=== PATIENT | male | born 1945 | race Caucasian/White ===

== ENCOUNTER → 2016-10-05 | Outpatient (CLI) | payer MEDICARE ==
[2016-10-05 14:48] LABS: MEAN CORPUSCULAR HEMOGLOBIN 31.4 pg (27.0-33.0); MEAN CORPUSCULAR HGB CONC 34.2 g/dl (32.0-36.5); MEAN CORPUSCULAR VOLUME 91.7 fl (80.0-96.0); RED CELL DISTRIBUTION WIDTH 12.8 % (11.5-14.5)
[2016-10-05 15:05] LABS: ALBUMIN 4.6 GM/DL (3.2-5.2); ALBUMIN/GLOBULIN RATIO 1.7 (1.00-1.93); BILIRUBIN,TOTAL 0.3 MG/DL (0.2-1.0); CALCIUM LEVEL 9.5 MG/DL (8.8-10.2); CREATININE FOR GFR 1.55 MG/DL (0.70-1.30); GLOMERULAR FILTRATION RATE 47.2 (>42); POTASSIUM SERUM 4.3 MEQ/L (3.5-5.1); TOTAL PROTEIN 7.3 GM/DL (6.4-8.2)
== END ==
LOC: M LAB 13:58
PROVIDERS: ATTEND Nurse Practitioner Family
DX: I10 Essential (primary) hypertension (principal); Z79.899 Other long term (current) drug therapy

== ENCOUNTER → 2016-12-08 | Outpatient (CLI) | payer MEDICARE ==
[2016-12-08 10:26] LABS: MEAN CORPUSCULAR HEMOGLOBIN 31.9 pg (27.0-33.0); MEAN CORPUSCULAR HGB CONC 34.9 g/dl (32.0-36.5); MEAN CORPUSCULAR VOLUME 91.5 fl (80.0-96.0); RED CELL DISTRIBUTION WIDTH 12.6 % (11.5-14.5); WHITE BLOOD COUNT 4.6 K/mm3 (4.0-10.0)
[2016-12-08 10:55] LABS: CALCIUM LEVEL 9.1 MG/DL (8.8-10.2); CREATININE FOR GFR 1.38 MG/DL (0.70-1.30); GLOMERULAR FILTRATION RATE 53.9 (>42); POTASSIUM SERUM 4.9 MEQ/L (3.5-5.1)
[2016-12-08 10:56] LABS: BILIRUBIN,TOTAL 0.5 MG/DL (0.2-1.0)
[2016-12-08 16:51] LABS: ALBUMIN 4.2 GM/DL (3.2-5.2); ALBUMIN/GLOBULIN RATIO 1.2 (1.00-1.93); TOTAL PROTEIN 7.7 GM/DL (6.4-8.2)
== END ==
LOC: M LAB 09:43
PROVIDERS: ATTEND Nurse Practitioner Family
DX: Z12.5 Encounter for screening for malignant neoplasm of prostate (principal); E78.00 Pure hypercholesterolemia, unspecified; R73.9 Hyperglycemia, unspecified

== ENCOUNTER → 2017-08-04 | Outpatient (CLI) | payer MEDICARE ==
[2017-08-04 11:26] LABS: BASO % 0.6 % (0.0-1.0); EOS # 0.1 10^3/uL (0.0-0.50); EOS % 1.9 % (0.0-3.0); HEMOGLOBIN 11.5 g/dl (14.0-18.0); IMMATURE GRANULOCYTE % 0.4 % (0-0); LYMPH # 1.2 10^3/uL (1.5-4.5); LYMPH % 23.2 % (24.0-44.0); MEAN CORPUSCULAR HGB CONC 33.8 g/dl (32.0-36.5); MEAN CORPUSCULAR VOLUME 91.6 fl (80.0-96.0); MONO # 0.5 10^3/uL (0.0-0.8); MONO % 10.2 % (0.0-5.0); NEUTROPHILS # 3.3 10^3/uL (1.8-7.7); NEUTROPHILS % 63.7 % (36.0-66.0); PLATELET COUNT, AUTOMATED 155 10^3/uL (150-450); RED BLOOD COUNT 3.71 10^6/uL (4.30-6.10); WHITE BLOOD COUNT 5.2 10^3/uL (4.0-10.0)
[2017-08-04 11:43] LABS: ESTIMATED AVERAGE GLUCOSE 140 MG/DL (60-110); HEMOGLOBIN A1c 6.5 %
[2017-08-04 11:47] LABS: ALBUMIN 3.9 GM/DL (3.2-5.2); ALBUMIN/GLOBULIN RATIO 1.18 (1.00-1.93); ALKALINE PHOSPHATASE 53 U/L (45-117); ALT/SGPT 42 U/L (12-78); ANION GAP 8 MEQ/L (8-16); AST/SGOT 34 U/L (7-37); BILIRUBIN,TOTAL 0.3 MG/DL (0.2-1.0); BLOOD UREA NITROGEN 18 MG/DL (7-18); CALCIUM LEVEL 8.8 MG/DL (8.8-10.2); CARBON DIOXIDE LEVEL 26 MEQ/L (21-32); CHLORIDE LEVEL 109 MEQ/L (98-107); CHOLESTEROL LEVEL 194 MG/DL (<200); CHOLESTEROL RISK RATIO 7.461 (<5); CREATININE FOR GFR 1.31 MG/DL (0.70-1.30); GLOMERULAR FILTRATION RATE 57.3 (>42); GLUCOSE, FASTING 111 MG/DL (70-100); HDL CHOLESTEROL 26 MG/DL (>40); NON-HDL-C 168 MG/DL; POTASSIUM SERUM 4.3 MEQ/L (3.5-5.1); PSA SCREENING 0.31 NG/ML (< 4.0); SODIUM LEVEL 143 MEQ/L (136-145); TOTAL PROTEIN 7.2 GM/DL (6.4-8.2); TRIGLYCERIDES LEVEL 415 MG/DL (<150)
[2017-08-04 12:32] LABS: TOTAL 25(OH) VITAMIN D 22.2 NG/ML (30.0-100.0)
== END ==
LOC: M LAB 10:22
DX: I10 Essential (primary) hypertension (principal); F41.9 Anxiety disorder, unspecified; H81.09 Meniere's disease, unspecified ear; E11.65 Type 2 diabetes mellitus with hyperglycemia; E78.00 Pure hypercholesterolemia, unspecified; E78.1 Pure hyperglyceridemia; N42.9 Disorder of prostate, unspecified; E55.9 Vitamin D deficiency, unspecified
CPT/HCPCS: 84443

== ENCOUNTER → 2017-09-25 | Outpatient (CLI) | payer MEDICARE ==
[~2017-09-25] MED LIST: GASTROGRAFIN SOLUTION 30ML (Q9963) As Ordered; ISOVUE-370 76% 100ML VIAL (Q9967) As Ordered
== END ==
LOC: M RAD 15:42
DX: K40.90 Unilateral inguinal hernia, without obstruction or gangrene, not specified as recurrent (principal); K57.90 Diverticulosis of intestine, part unspecified, without perforation or abscess without bleeding; N42.0 Calculus of prostate; R10.9 Unspecified abdominal pain
CPT/HCPCS: Q9963

== ENCOUNTER → 2017-11-07 | Outpatient (CLI) | payer MEDICARE ==
[2017-11-07 08:58] LABS: BASO % 0.4 % (0.0-1.0); EOS # 0.1 10^3/uL (0.0-0.50); EOS % 1.7 % (0.0-3.0); HEMATOCRIT 36.6 % (42.0-52.0); HEMOGLOBIN 12.3 g/dl (13.5-17.5); IMMATURE GRANULOCYTE % 0.2 % (0-3.0); LYMPH # 1.4 10^3/uL (1.5-4.5); LYMPH % 29.4 % (24.0-44.0); MEAN CORPUSCULAR HEMOGLOBIN 30.5 pg (27.0-33.0); MEAN CORPUSCULAR HGB CONC 33.6 g/dl (32.0-36.5); MEAN CORPUSCULAR VOLUME 90.8 fl (80.0-96.0); MONO # 0.5 10^3/uL (0.0-0.8); MONO % 11.4 % (0.0-5.0); NEUTROPHILS # 2.7 10^3/uL (1.8-7.7); NEUTROPHILS % 56.9 % (36.0-66.0); PLATELET COUNT, AUTOMATED 178 10^3/uL (150-450); RED BLOOD COUNT 4.03 10^6/uL (4.30-6.10); RED CELL DISTRIBUTION WIDTH 12.6 % (11.5-14.5); WHITE BLOOD COUNT 4.7 10^3/uL (4.0-10.0)
[2017-11-07 09:29] LABS: ALBUMIN 4.3 GM/DL (3.2-5.2); ALBUMIN/GLOBULIN RATIO 1.23 (1.00-1.93); ALKALINE PHOSPHATASE 43 U/L (45-117); ALT/SGPT 31 U/L (12-78); ANION GAP 6 MEQ/L (8-16); AST/SGOT 31 U/L (7-37); BILIRUBIN,TOTAL 0.4 MG/DL (0.2-1.0); BLOOD UREA NITROGEN 32 MG/DL (7-18); CARBON DIOXIDE LEVEL 25 MEQ/L (21-32); CHLORIDE LEVEL 110 MEQ/L (98-107); CHOLESTEROL LEVEL 206 MG/DL (<200); CHOLESTEROL RISK RATIO 6.645 (<5); CREATININE FOR GFR 1.65 MG/DL (0.70-1.30); FREE T4 1.02 NG/DL (0.76-1.46); GLOMERULAR FILTRATION RATE 43.8 (>42); GLUCOSE, FASTING 103 MG/DL (70-100); HDL CHOLESTEROL 31 MG/DL (>40); LDL CHOLESTEROL 138.4 MG/DL (<100); NON-HDL-C 175 MG/DL; POTASSIUM SERUM 4.5 MEQ/L (3.5-5.1); SODIUM LEVEL 141 MEQ/L (136-145); TOTAL PROTEIN 7.8 GM/DL (6.4-8.2); TRIGLYCERIDES LEVEL 183 MG/DL (<150)
[2017-11-07 09:30] LABS: TOTAL 25(OH) VITAMIN D 27.2 NG/ML (30.0-100.0)
[2017-11-07 11:00] LABS: ESTIMATED AVERAGE GLUCOSE 131 MG/DL (60-110); HEMOGLOBIN A1c 6.2 %
== END ==
LOC: M LAB 08:34
DX: E78.1 Pure hyperglyceridemia (principal); E78.00 Pure hypercholesterolemia, unspecified; E11.65 Type 2 diabetes mellitus with hyperglycemia; Z79.899 Other long term (current) drug therapy
CPT/HCPCS: 84443

== ENCOUNTER → 2018-05-14 | Outpatient (CLI) | payer MEDICARE ==
[2018-05-14 13:39] LABS: BASO % 0.5 % (0.0-1.0); EOS # 0.1 10^3/uL (0.0-0.50); EOS % 1.4 % (0.0-3.0); HEMATOCRIT 34.3 % (42.0-52.0); HEMOGLOBIN 11.8 g/dl (13.5-17.5); IMMATURE GRANULOCYTE % 0.7 % (0-3.0); LYMPH # 1.2 10^3/uL (1.5-4.5); LYMPH % 21.2 % (24.0-44.0); MEAN CORPUSCULAR HEMOGLOBIN 30.7 pg (27.0-33.0); MEAN CORPUSCULAR HGB CONC 34.4 g/dl (32.0-36.5); MEAN CORPUSCULAR VOLUME 89.3 fl (80.0-96.0); MONO # 0.5 10^3/uL (0.0-0.8); MONO % 8.4 % (0.0-5.0); NEUTROPHILS % 67.8 % (36.0-66.0); PLATELET COUNT, AUTOMATED 149 10^3/uL (150-450); RED BLOOD COUNT 3.84 10^6/uL (4.30-6.10); WHITE BLOOD COUNT 5.8 10^3/uL (4.0-10.0)
[2018-05-14 14:13] LABS: ALBUMIN 3.9 GM/DL (3.2-5.2); ALBUMIN/GLOBULIN RATIO 1.15 (1.00-1.93); ALKALINE PHOSPHATASE 51 U/L (45-117); ALT/SGPT 31 U/L (12-78); ANION GAP 9 MEQ/L (8-16); AST/SGOT 31 U/L (7-37); BILIRUBIN,TOTAL 0.4 MG/DL (0.2-1.0); BLOOD UREA NITROGEN 24 MG/DL (7-18); CALCIUM LEVEL 8.8 MG/DL (8.8-10.2); CARBON DIOXIDE LEVEL 22 MEQ/L (21-32); CHLORIDE LEVEL 110 MEQ/L (98-107); CHOLESTEROL LEVEL 216 MG/DL (<200); CREATININE FOR GFR 1.34 MG/DL (0.70-1.30); FREE T4 0.97 NG/DL (0.76-1.46); GLOMERULAR FILTRATION RATE 55.6 (>42); GLUCOSE, FASTING 98 MG/DL (70-100); HDL CHOLESTEROL 27 MG/DL (>40); LDL CHOLESTEROL 123 MG/DL (<100); NON-HDL-C 189 MG/DL; POTASSIUM SERUM 4.5 MEQ/L (3.5-5.1); SODIUM LEVEL 141 MEQ/L (136-145); TOTAL PROTEIN 7.3 GM/DL (6.4-8.2); TRIGLYCERIDES LEVEL 328 MG/DL (<150)
[2018-05-14 14:23] LABS: TOTAL 25(OH) VITAMIN D 39.3 NG/ML (30.0-100.0)
[2018-05-14 15:03] LABS: ESTIMATED AVERAGE GLUCOSE 128 MG/DL (60-110); HEMOGLOBIN A1c 6.1 %
== END ==
LOC: M LAB 12:48
DX: I10 Essential (primary) hypertension (principal); Z79.899 Other long term (current) drug therapy
CPT/HCPCS: 84443

== ENCOUNTER → 2018-07-12 | Outpatient (CLI) | payer MEDICARE ==
[2018-07-12 14:10] LABS: BASO % 0.6 % (0.0-1.0); EOS # 0.2 10^3/uL (0.0-0.50); EOS % 2.9 % (0.0-3.0); HEMATOCRIT 35.9 % (42.0-52.0); HEMOGLOBIN 12.3 g/dl (13.5-17.5); LYMPH # 1.3 10^3/uL (1.5-4.5); LYMPH % 24.2 % (24.0-44.0); MEAN CORPUSCULAR HEMOGLOBIN 30.4 pg (27.0-33.0); MEAN CORPUSCULAR HGB CONC 34.3 g/dl (32.0-36.5); MEAN CORPUSCULAR VOLUME 88.9 fl (80.0-96.0); MONO # 0.6 10^3/uL (0.0-0.8); MONO % 10.9 % (0.0-5.0); NEUTROPHILS # 3.2 10^3/uL (1.8-7.7); PLATELET COUNT, AUTOMATED 181 10^3/uL (150-450); RED BLOOD COUNT 4.04 10^6/uL (4.30-6.10); WHITE BLOOD COUNT 5.2 10^3/uL (4.0-10.0)
[2018-07-12 14:31] LABS: HEMOGLOBIN A1c 6.1 %
[2018-07-12 14:41] LABS: ALBUMIN 4.2 GM/DL (3.2-5.2); BILIRUBIN,TOTAL 0.3 MG/DL (0.2-1.0); CALCIUM LEVEL 9.6 MG/DL (8.8-10.2); CHOLESTEROL RISK RATIO 6.666 (<5); CREATININE FOR GFR 1.44 MG/DL (0.70-1.30); FREE T4 1.14 NG/DL (0.76-1.46); GLOMERULAR FILTRATION RATE 51.2 (>42); POTASSIUM SERUM 4.9 MEQ/L (3.5-5.1); THYROID STIMULATING HORMONE 3.35 uIU/ML (0.358-3.740); TOTAL PROTEIN 7.6 GM/DL (6.4-8.2)
== END ==
LOC: M LAB 13:08
PROVIDERS: ATTEND Physician Assistant Medical
DX: I10 Essential (primary) hypertension (principal); E78.2 Mixed hyperlipidemia; E03.9 Hypothyroidism, unspecified; E11.9 Type 2 diabetes mellitus without complications

== ENCOUNTER 2018-12-15 19:09 | Inpatient (IN) | payer OTHER, MEDICARE ==
[~2018-12-15] VITALS: Ht 167.6 cm; Wt 76.2 kg
[2018-12-15] MEDS ORDERED: METF500T4 PO (19:14)
[2018-12-15] MEDS ORDERED: TIZA4TAB4 PO (19:14)
[2018-12-15] MEDS ORDERED: ATEN100T PO (19:14)
[2018-12-15] MEDS ORDERED: LISI10TA4 PO (19:14)
[2018-12-15] MEDS ORDERED: EZET10TA21 PO (19:14)
[2018-12-15] MEDS ORDERED: LEVO88TA3 PO (19:14)
[2018-12-15] MEDS ORDERED: FENO145T13 PO (19:14)
[2018-12-15] MEDS ORDERED: TRAV04OPD OU (19:14)
[2018-12-15 20:24] LABS: BASO % 0.6 % (0.0-1.0); EOS # 0.1 10^3/uL (0.0-0.50); HEMATOCRIT 35.5 % (42.0-52.0); HEMOGLOBIN 11.8 g/dl (13.5-17.5); LYMPH # 1.5 10^3/uL (1.5-4.5); LYMPH % 28.5 % (24.0-44.0); MEAN CORPUSCULAR HGB CONC 33.2 g/dl (32.0-36.5); MEAN CORPUSCULAR VOLUME 93.2 fl (80.0-96.0); MONO # 0.6 10^3/uL (0.0-0.8); MONO % 11.1 % (0.0-5.0); NEUTROPHILS # 3.1 10^3/uL (1.8-7.7); NEUTROPHILS % 57.4 % (36.0-66.0); PLATELET COUNT, AUTOMATED 186 10^3/uL (150-450); RED BLOOD COUNT 3.81 10^6/uL (4.30-6.10); WHITE BLOOD COUNT 5.4 10^3/uL (4.0-10.0)
[2018-12-15 20:34] LABS: INR 1.01; PARTIAL THROMBOPLASTIN TIME 27.9 SECONDS (25.4-37.6); PROTHROMBIN TIME 13.4 SECONDS (12.1-14.4)
[2018-12-15 20:50] LABS: ALT/SGPT 46 U/L (12-78); BILIRUBIN,DIRECT < 0.1 MG/DL (0.0-0.2); BILIRUBIN,TOTAL 0.3 MG/DL (0.2-1.0); BLOOD UREA NITROGEN 32 MG/DL (7-18); CALCIUM LEVEL 9.6 MG/DL (8.8-10.2); CARBON DIOXIDE LEVEL 24 MEQ/L (21-32); CHLORIDE LEVEL 110 MEQ/L (98-107); GLOMERULAR FILTRATION RATE 42.2 (>42); GLUCOSE, FASTING 117 MG/DL (70-100); POTASSIUM SERUM 5.1 MEQ/L (3.5-5.1); SODIUM LEVEL 141 MEQ/L (136-145); TOTAL PROTEIN 7.8 GM/DL (6.4-8.2)
[2018-12-15] MEDS ORDERED: LISINOPRIL 10 MG TAB PO SCH (21:00)
[2018-12-15] MEDS ORDERED: NS 1,000 ML IV SCH (21:01)
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
[2018-12-15] MEDS ORDERED: ACETAMINOPHEN TAB 650MG DOSE (2X325MG) PO ONE (23:15)
[2018-12-16] MEDS: NS 1,000 ML IV SCH ×2 (00:38→06:52)
[2018-12-16] MEDS: tiZANidine 4 MG TAB PO SCH ×2 (00:38→22:14)
[2018-12-16 01:38] VITALS: BP 140/80
[2018-12-16] MEDS: ATENOLOL 50 MG TAB PO SCH ×2 (01:41→22:16)
[2018-12-16] MEDS: LEVOTHYROXINE 88MCG TABLET (0.088 MG) PO SCH ×2 (01:42→22:14)
[2018-12-16] MEDS: FENOFIBRATE 145 MG TAB (TRICOR) PO SCH ×2 (01:42→22:14)
[2018-12-16] MEDS: ACETAMINOPHEN TAB 650MG DOSE (2X325MG) PO PRN (04:30)
[2018-12-16] MEDS: oxyCODONE 5MG TAB PO PRN ×2 (05:57→13:02)
[2018-12-16 07:34] LABS: HEMATOCRIT 33.7 % (42.0-52.0); HEMOGLOBIN 11.4 g/dl (13.5-17.5); MEAN CORPUSCULAR HEMOGLOBIN 31.8 pg (27.0-33.0); MEAN CORPUSCULAR HGB CONC 33.8 g/dl (32.0-36.5); MEAN CORPUSCULAR VOLUME 93.9 fl (80.0-96.0); PLATELET COUNT, AUTOMATED 180 10^3/uL (150-450); RED BLOOD COUNT 3.59 10^6/uL (4.30-6.10); WHITE BLOOD COUNT 5.3 10^3/uL (4.0-10.0)
[2018-12-16 07:58] LABS: CALCIUM LEVEL 8.8 MG/DL (8.8-10.2); CREATININE FOR GFR 1.46 MG/DL (0.70-1.30); GLOMERULAR FILTRATION RATE 50.2 (>42); POTASSIUM SERUM 4.7 MEQ/L (3.5-5.1)
[2018-12-16 08:00] VITALS: BP 157/82
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
[2018-12-16] MEDS ORDERED: SLF 3 ML SYR IV PRN (10:30)
[2018-12-16] MEDS ORDERED: METHOCARBAMOL 500 MG TAB PO SCH (11:00)
[2018-12-16] MEDS ORDERED: PROHANCE 279.3MG/ML 15ML VIAL (A9576) As Ordered ONE (12:33)
[2018-12-16] MEDS: LIDOCAINE 5% (LIDODERM) PATCH TD SCH (13:01)
[2018-12-16] MEDS: SLF 3 ML SYR IV SCH (13:50)
--- NOTE | 2018-12-16 14:01 | REP ---
RIGHT SHOULDER, THREE VIEWS: Three views of the right shoulder are performed. There is no acute fracture or dislocation. There is mild narrowing and spurring at the acromioclavicular joint. There is also mild narrowing and spurring at the glenohumeral joint. Two surgical anchors are seen in the humeral head. IMPRESSION: Degenerative changes. No acute fracture or dislocation. Electronically Signed by Emerson Schilling MD 12/16/2018 04:38 P
[2018-12-16 14:35] VITALS: BP 165/90
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
[2018-12-16] MEDS: METHOCARBAMOL 500 MG TAB PO SCH (17:04)
[2018-12-16 22:00] VITALS: BP 143/78
[2018-12-16] MEDS: LATANOPROST 0.005% OPHTH SOLN 2.5 ML OU SCH ×2 (22:13→22:17)
[2018-12-17] MEDS: **NOTE PATIENT COMMENT** MISC XX SCH ×2 (02:23→20:44)
[2018-12-17] MEDS: SLF 3 ML SYR IV SCH ×4 (02:24→22:03)
[2018-12-17 06:00] VITALS: BP 133/78
[2018-12-17 06:04] LABS: HEMATOCRIT 37.8 % (42.0-52.0); HEMOGLOBIN 12.7 g/dl (13.5-17.5); MEAN CORPUSCULAR HEMOGLOBIN 31.3 pg (27.0-33.0); MEAN CORPUSCULAR HGB CONC 33.6 g/dl (32.0-36.5); MEAN CORPUSCULAR VOLUME 93.1 fl (80.0-96.0); PLATELET COUNT, AUTOMATED 193 10^3/uL (150-450); RED BLOOD COUNT 4.06 10^6/uL (4.30-6.10); WHITE BLOOD COUNT 6.1 10^3/uL (4.0-10.0)
[2018-12-17 06:21] LABS: HEMOGLOBIN A1c 6.1 %
[2018-12-17 06:28] LABS: CREATININE FOR GFR 1.52 MG/DL (0.70-1.30); POTASSIUM SERUM 4.2 MEQ/L (3.5-5.1)
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
[2018-12-17] MEDS: LIDOCAINE 5% (LIDODERM) PATCH TD SCH (08:07)
[2018-12-17] MEDS: METHOCARBAMOL 500 MG TAB PO SCH ×3 (08:07→17:40)
[2018-12-17] MEDS: ENOXAPARIN 40 MG/0.4 ML SYRINGE (J1650) SC SCH (08:07)
[2018-12-17] MEDS: oxyCODONE 5MG TAB PO PRN ×2 (10:19→20:41)
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
[2018-12-17 14:00] VITALS: BP 154/93
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
--- NOTE | 2018-12-17 17:19 | REP ---
Cervical spine eight views: Comparison is the CT study dated 12/15/2018. Vertebral body heights and alignment are normal C1-C6. See 71 are obscured by the shoulders. There are large anterior bridging osteophytes at C for five and C5-6. There is degenerative disc disease at every cervical level, most advanced at C 05/06 and 06/07. There is facet osteoarthritis. The prevertebral soft tissues are unremarkable. The odontoid view is unremarkable. The foramen are obscured. If there are clinical findings suggestive of a nerve root compression. Consider follow-up MRI. Impression: The degenerative disc disease, facet osteoarthritis and vertebral body osteophyte formation as described. Electronically Signed by Emerson Delgado MD 12/17/2018 05:11 P
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
[2018-12-17] MEDS: FENOFIBRATE 145 MG TAB (TRICOR) PO SCH (20:41)
[2018-12-17] MEDS: LEVOTHYROXINE 88MCG TABLET (0.088 MG) PO SCH (20:41)
[2018-12-17] MEDS: ATENOLOL 50 MG TAB PO SCH (20:42)
[2018-12-17] MEDS: tiZANidine 4 MG TAB PO SCH (20:42)
[2018-12-17] MEDS: LATANOPROST 0.005% OPHTH SOLN 2.5 ML OU SCH (20:42)
[2018-12-17 22:00] VITALS: BP 140/86
[2018-12-18 06:00] VITALS: BP 129/76
[2018-12-18 06:16] LABS: HEMATOCRIT 37.1 % (42.0-52.0); HEMOGLOBIN 12.7 g/dl (13.5-17.5); MEAN CORPUSCULAR HEMOGLOBIN 30.9 pg (27.0-33.0); MEAN CORPUSCULAR HGB CONC 34.2 g/dl (32.0-36.5); MEAN CORPUSCULAR VOLUME 90.3 fl (80.0-96.0); PLATELET COUNT, AUTOMATED 231 10^3/uL (150-450); RED BLOOD COUNT 4.11 10^6/uL (4.30-6.10); WHITE BLOOD COUNT 7.2 10^3/uL (4.0-10.0)
[2018-12-18] MEDS: SLF 3 ML SYR IV SCH ×3 (06:21→20:27)
[2018-12-18] MEDS: oxyCODONE 5MG TAB PO PRN ×2 (06:28→13:07)
[2018-12-18 06:36] LABS: CALCIUM LEVEL 9.2 MG/DL (8.8-10.2); CREATININE FOR GFR 1.95 MG/DL (0.70-1.30); POTASSIUM SERUM 4.4 MEQ/L (3.5-5.1)
[2018-12-18] MEDS: METHOCARBAMOL 500 MG TAB PO SCH ×2 (08:35→13:06)
[2018-12-18] MEDS: ENOXAPARIN 40 MG/0.4 ML SYRINGE (J1650) SC SCH (08:36)
[2018-12-18] MEDS: LIDOCAINE 5% (LIDODERM) PATCH TD SCH (08:36)
[2018-12-18 14:00] VITALS: BP 134/80
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
[2018-12-18] MEDS: GABAPENTIN 100 MG CAP PO SCH ×2 (16:31→20:26)
[2018-12-18 17:54] VITALS: BP 190/96
[2018-12-18] MEDS ORDERED: NS 1,000 ML IV SCH (18:00)
[2018-12-18 18:05] VITALS: BP 178/95
[2018-12-18 18:43] VITALS: BP_SYST 152; BP_SYST 162; BP_SYST 169; BP_DIAS 106; BP_DIAS 87; BP_DIAS 89
[2018-12-18 19:02] LABS: BLOOD UREA NITROGEN 41 MG/DL (7-18); CALCIUM LEVEL 9.2 MG/DL (8.8-10.2); CARBON DIOXIDE LEVEL 22 MEQ/L (21-32); CHLORIDE LEVEL 108 MEQ/L (98-107); CREATININE FOR GFR 1.97 MG/DL (0.70-1.30); GLOMERULAR FILTRATION RATE 35.6 (>42); GLUCOSE, FASTING 131 MG/DL (70-100); POTASSIUM SERUM 4.2 MEQ/L (3.5-5.1); SODIUM LEVEL 138 MEQ/L (136-145); TROPONIN I < 0.02 NG/ML (< 0.10)
[2018-12-18] MEDS: LEVOTHYROXINE 88MCG TABLET (0.088 MG) PO SCH (20:26)
[2018-12-18] MEDS: ATENOLOL 50 MG TAB PO SCH (20:26)
[2018-12-18] MEDS: LATANOPROST 0.005% OPHTH SOLN 2.5 ML OU SCH (20:26)
[2018-12-18] MEDS: FENOFIBRATE 145 MG TAB (TRICOR) PO SCH (20:26)
[2018-12-18] MEDS: tiZANidine 4 MG TAB PO SCH (20:26)
[2018-12-18] MEDS: **NOTE PATIENT COMMENT** MISC XX SCH (20:28)
[2018-12-18 22:00] VITALS: BP 148/81
[2018-12-19] MEDS: oxyCODONE 5MG TAB PO PRN ×4 (01:28→23:54)
[2018-12-19] MEDS: SLF 3 ML SYR IV SCH ×3 (06:04→20:36)
[2018-12-19 06:05] LABS: HEMATOCRIT 37.4 % (42.0-52.0); HEMOGLOBIN 12.4 g/dl (13.5-17.5); MEAN CORPUSCULAR HEMOGLOBIN 31.1 pg (27.0-33.0); MEAN CORPUSCULAR HGB CONC 33.2 g/dl (32.0-36.5); MEAN CORPUSCULAR VOLUME 93.7 fl (80.0-96.0); PLATELET COUNT, AUTOMATED 235 10^3/uL (150-450); RED BLOOD COUNT 3.99 10^6/uL (4.30-6.10); WHITE BLOOD COUNT 9.5 10^3/uL (4.0-10.0)
[2018-12-19 06:34] LABS: CALCIUM LEVEL 8.7 MG/DL (8.8-10.2); CREATININE FOR GFR 1.81 MG/DL (0.70-1.30); GLOMERULAR FILTRATION RATE 39.2 (>42); POTASSIUM SERUM 4.4 MEQ/L (3.5-5.1)
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
[2018-12-19] MEDS: GABAPENTIN 100 MG CAP PO SCH ×3 (08:16→20:35)
[2018-12-19] MEDS: LIDOCAINE 5% (LIDODERM) PATCH TD SCH (08:19)
[2018-12-19] MEDS: ENOXAPARIN 40 MG/0.4 ML SYRINGE (J1650) SC SCH (10:05)
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
--- NOTE | 2018-12-19 11:57 | REP ---
CT BRAIN WITHOUT CONTRAST: HISTORY: Syncope. COMPARISON STUDY: December [address] FINDINGS: Preliminary digital drafter seismograph radiograph is unremarkable. Bony calvarium appears intact. There is vascular calcification in the distal carotid arteries bilaterally. The visualized paranasal sinuses are clear. No intraorbital abnormality is seen. On soft tissue window settings, there is mild diffuse cerebral atrophy. Schilling-white differentiation pattern is normal above below the tentorium. There is no evidence of intracranial hemorrhage or infarction. No extra-axial fluid collection, mass, or midline shift is seen. IMPRESSION: Mild diffuse atrophy and vascular calcification again noted. No acute intracranial abnormality. Electronically Signed by Saul Liu MD 12/19/2018 02:31 P
[2018-12-19 14:00] VITALS: BP 185/81
[2018-12-19 15:07] VITALS: BP 140/70
[2018-12-19] MEDS: LEVOTHYROXINE 88MCG TABLET (0.088 MG) PO SCH (20:34)
[2018-12-19] MEDS: FENOFIBRATE 145 MG TAB (TRICOR) PO SCH (20:35)
[2018-12-19] MEDS: tiZANidine 4 MG TAB PO SCH (20:35)
[2018-12-19] MEDS: LATANOPROST 0.005% OPHTH SOLN 2.5 ML OU SCH (20:36)
[2018-12-19] MEDS: ATENOLOL 50 MG TAB PO SCH (20:36)
[2018-12-19] MEDS: **NOTE PATIENT COMMENT** MISC XX SCH (20:37)
[2018-12-19 22:00] VITALS: BP 153/84
[2018-12-20] MEDS: SLF 3 ML SYR IV SCH (05:53)
[2018-12-20] MEDS: oxyCODONE 5MG TAB PO PRN ×2 (05:54→14:34)
[2018-12-20 06:00] VITALS: BP 154/92
[2018-12-20 06:38] LABS: HEMATOCRIT 37.4 % (42.0-52.0); HEMOGLOBIN 12.6 g/dl (13.5-17.5); MEAN CORPUSCULAR HEMOGLOBIN 30.5 pg (27.0-33.0); MEAN CORPUSCULAR HGB CONC 33.7 g/dl (32.0-36.5); MEAN CORPUSCULAR VOLUME 90.6 fl (80.0-96.0); PLATELET COUNT, AUTOMATED 240 10^3/uL (150-450); RED BLOOD COUNT 4.13 10^6/uL (4.30-6.10); WHITE BLOOD COUNT 8.7 10^3/uL (4.0-10.0)
[2018-12-20 07:01] LABS: CALCIUM LEVEL 8.6 MG/DL (8.8-10.2); CREATININE FOR GFR 1.69 MG/DL (0.70-1.30); GLOMERULAR FILTRATION RATE 42.4 (>42); POTASSIUM SERUM 4.1 MEQ/L (3.5-5.1)
[2018-12-20] MEDS: GABAPENTIN 100 MG CAP PO SCH ×3 (09:19→20:23)
[2018-12-20] MEDS: LIDOCAINE 5% (LIDODERM) PATCH TD SCH (09:19)
[2018-12-20] MEDS: ENOXAPARIN 40 MG/0.4 ML SYRINGE (J1650) SC SCH (09:20)
[2018-12-20 14:00] VITALS: BP 150/58
[2018-12-20] MEDS: METHOCARBAMOL 500 MG TAB PO PRN (14:33)
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
[2018-12-20] MEDS: LEVOTHYROXINE 88MCG TABLET (0.088 MG) PO SCH (20:23)
[2018-12-20] MEDS: tiZANidine 4 MG TAB PO SCH (20:23)
[2018-12-20] MEDS: FENOFIBRATE 145 MG TAB (TRICOR) PO SCH (20:23)
[2018-12-20] MEDS: LATANOPROST 0.005% OPHTH SOLN 2.5 ML OU SCH (20:24)
[2018-12-20] MEDS: **NOTE PATIENT COMMENT** MISC XX SCH (20:24)
[2018-12-20] MEDS: ATENOLOL 50 MG TAB PO SCH (20:26)
[2018-12-20 22:00] VITALS: BP 142/72
[2018-12-21] VITALS (18 sets, daily range): BP systolic 143–172; BP diastolic 65–99; O2SAT 93–98
--- NOTE | 2018-12-21 02:03 | IPNPDOC ---
Text Note Date of Service The patient was seen on 12/21/18. NOTE Rapid Assessment Note Patient had a RAT called at about 1 am. Patient was found down on the floor half in and half out of the bathroom door lying on his left side . The Nurse's AID found him. He did not have his collar on. He was non responsive but had good pulse. RAT was called. Vitals were stable . Patient slowly became more responsive and was trying to speak initially could say 1 or 2 words only. He could not move his lower or upper extremities at all. His soft collar was immediately put back on. On my exam he was responsive with eyes open could not verbalize much but could say yes or no or to nod to leading questions On Physical exam there was asymmetric DTRs on his lower extremities. Right 3+ and left 2+, his upper extremity DTRS were decreased. Gradually over the next 30 mins he was able to move his legs more and also his upper extremities more. He was also able to speak better. He said that he was coming out of the bathroom when he felt a sudden pain at the back of his neck shooting up to his head and then "the lights went". Next thing he knows is that his is on the floor and he could not move. He complained of numbness of his right upper extremity, his sensations in the legs were OK. He also complained of double vision. I suspected acute intermittent cord compression at the cervical cord level leading to acute loss of muscle power and collapse. Could not explain the double vision or the inability to talk unless he also had brain stem issues. Stat head CT, MRI C spine, MRI brain, MRI thoracic spine. will transfer the Pateint to PCU, telemetry continuous pulse oximetry, q4 hour neuro checks. VS,Dannie, I+O VS, Dannie, I+O Laboratory Tests 12/20/18 05:36 Red Blood Count 4.13 L, Mean Corpuscular Volume 90.6, Mean Corpuscular Hemoglobin 30.5, Mean Corpuscular Hemoglobin Concent 33.7, Red Cell Distribution Width 12.7, Calcium Level 8.6 L Vital Signs Date Time Temp Pulse Resp B/P (MAP) Pulse Ox O2 Delivery O2 Flow Rate FiO2 12/20/18 22:00 96.9 69 18 142/72 (95) 98 12/15/18 21:00 Room Air I&O- Last 24 Hours up to 6 AM 12/21/18 06:00 Intake Total 1200 ml Balance 1200 ml [place] BISWAS MD Dec 21, 2018 02:03
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
[2018-12-21] MEDS: oxyCODONE 5MG TAB PO PRN ×2 (06:54→13:58)
[2018-12-21] MEDS: ENOXAPARIN 40 MG/0.4 ML SYRINGE (J1650) SC SCH (08:34)
[2018-12-21] MEDS: GABAPENTIN 100 MG CAP PO SCH ×3 (08:34→21:58)
[2018-12-21] MEDS: LIDOCAINE 5% (LIDODERM) PATCH TD SCH (08:34)
[2018-12-21] MEDS ORDERED: SLF 3 ML SYR IV PRN (15:00)
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
[2018-12-21] MEDS: **NOTE PATIENT COMMENT** MISC XX SCH (21:00)
[2018-12-21] MEDS: tiZANidine 4 MG TAB PO SCH (21:58)
[2018-12-21] MEDS: LEVOTHYROXINE 88MCG TABLET (0.088 MG) PO SCH (21:58)
[2018-12-21] MEDS: FENOFIBRATE 145 MG TAB (TRICOR) PO SCH (21:58)
[2018-12-21] MEDS: ATENOLOL 50 MG TAB PO SCH (21:58)
[2018-12-21] MEDS: LATANOPROST 0.005% OPHTH SOLN 2.5 ML OU SCH (21:59)
[2018-12-21] MEDS: SLF 3 ML SYR IV SCH (22:04)
[2018-12-22] VITALS (15 sets, daily range): BP systolic 120–160; BP diastolic 71–91; O2SAT 91–96
[2018-12-22] MEDS: oxyCODONE 5MG TAB PO PRN ×2 (05:10→11:24)
[2018-12-22] MEDS: SLF 3 ML SYR IV SCH ×3 (05:16→21:24)
[2018-12-22] MEDS: GABAPENTIN 100 MG CAP PO SCH ×3 (10:19→21:16)
[2018-12-22] MEDS: ENOXAPARIN 40 MG/0.4 ML SYRINGE (J1650) SC SCH (10:19)
[2018-12-22] MEDS: LIDOCAINE 5% (LIDODERM) PATCH TD SCH (10:19)
[2018-12-22] MEDS: METHOCARBAMOL 500 MG TAB PO PRN (11:24)
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
[2018-12-22] MEDS: **NOTE PATIENT COMMENT** MISC XX SCH (21:00)
[2018-12-22] MEDS: ACETAMINOPHEN TAB 650MG DOSE (2X325MG) PO PRN (21:16)
[2018-12-22] MEDS: LEVOTHYROXINE 88MCG TABLET (0.088 MG) PO SCH (21:17)
[2018-12-22] MEDS: tiZANidine 4 MG TAB PO SCH (21:17)
[2018-12-22] MEDS: LATANOPROST 0.005% OPHTH SOLN 2.5 ML OU SCH (21:20)
[2018-12-22] MEDS: FENOFIBRATE 145 MG TAB (TRICOR) PO SCH (21:20)
[2018-12-22] MEDS: ATENOLOL 50 MG TAB PO SCH (21:20)
[2018-12-23] VITALS: BP 133/80
[2018-12-23] MEDS: oxyCODONE 5MG TAB PO PRN ×3 (00:22→23:38)
[2018-12-23 04:00] VITALS: BP 141/78
[2018-12-23] MEDS: SLF 3 ML SYR IV SCH ×3 (06:35→22:00)
[2018-12-23 08:00] VITALS: BP 136/74
[2018-12-23] MEDS: METHOCARBAMOL 500 MG TAB PO PRN (08:43)
[2018-12-23] MEDS: ACETAMINOPHEN TAB 650MG DOSE (2X325MG) PO PRN ×2 (08:44→16:35)
[2018-12-23] MEDS: GABAPENTIN 100 MG CAP PO SCH ×3 (08:44→20:41)
[2018-12-23] MEDS: ENOXAPARIN 40 MG/0.4 ML SYRINGE (J1650) SC SCH (08:45)
[2018-12-23] MEDS: LIDOCAINE 5% (LIDODERM) PATCH TD SCH (08:45)
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
[2018-12-23] MEDS ORDERED: GABA-1171 PO (13:23)
[2018-12-23] MEDS ORDERED: OXYCO5TA PO (13:23)
[2018-12-23] MEDS ORDERED: LIDO5TD TD (13:23)
[2018-12-23 20:00] VITALS: BP 144/89
[2018-12-23] MEDS: LEVOTHYROXINE 88MCG TABLET (0.088 MG) PO SCH (20:40)
[2018-12-23] MEDS: tiZANidine 4 MG TAB PO SCH (20:40)
[2018-12-23 20:41] VITALS: BP 144/89
[2018-12-23] MEDS: ATENOLOL 50 MG TAB PO SCH (20:41)
[2018-12-23] MEDS: FENOFIBRATE 145 MG TAB (TRICOR) PO SCH (20:41)
[2018-12-23] MEDS: **NOTE PATIENT COMMENT** MISC XX SCH (21:00)
[2018-12-23] MEDS: LATANOPROST 0.005% OPHTH SOLN 2.5 ML OU SCH (21:02)
[2018-12-24] MEDS: ACETAMINOPHEN TAB 650MG DOSE (2X325MG) PO PRN (01:33)
[2018-12-24 04:00] VITALS: BP 145/78
[2018-12-24] MEDS: SLF 3 ML SYR IV SCH (05:57)
[2018-12-24 08:00] VITALS: BP 156/74
[2018-12-24] MEDS: GABAPENTIN 100 MG CAP PO SCH (09:07)
[2018-12-24] MEDS: ENOXAPARIN 40 MG/0.4 ML SYRINGE (J1650) SC SCH (09:08)
[2018-12-24] MEDS: LIDOCAINE 5% (LIDODERM) PATCH TD SCH (09:08)
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
== END 2018-12-24 11:41 | disposition home or self-care (01) | DRG 347 ==
LOC: M ED 19:09 → M ED INP 23:47 → M PCU 12-16 01:13 → M MSPAV 12-16 14:32 → OBSVTOIN 12-17 15:52 → M PCU 12-21 01:50
PROVIDERS: ADMIT Hospitalist; ATTEND Family Medicine
DX: S13.4XXA Sprain of ligaments of cervical spine, initial encounter (principal); E11.29 Type 2 diabetes mellitus with other diabetic kidney complication; E11.40 Type 2 diabetes mellitus with diabetic neuropathy, unspecified; J44.9 Chronic obstructive pulmonary disease, unspecified; M48.02 Spinal stenosis, cervical region; N18.3 Chronic kidney disease, stage 3 (moderate); I12.9 Hypertensive chronic kidney disease with stage 1 through stage 4 chronic kidney disease, or unspecified chronic kidney disease; E78.5 Hyperlipidemia, unspecified; E03.9 Hypothyroidism, unspecified; Z79.899 Other long term (current) drug therapy; R55 Syncope and collapse; V49.49XA Driver injured in collision with other motor vehicles in traffic accident, initial encounter

== ENCOUNTER → 2019-06-19 | Outpatient (CLI) | payer OTHER, MEDICARE ==
[~2019-06-19] MED LIST changes: +ATEN100T PO; +EZET10TA21 PO; +FENO145T13 PO; +GABA-1171 PO; -GASTROGRAFIN SOLUTION 30ML (Q9963) As Ordered; -ISOVUE-370 76% 100ML VIAL (Q9967) As Ordered; +LEVO88TA3 PO; +LIDO5TD TD; +LISI10TA4 PO; +METF-791 PO; +OXYCO5TA PO; +TIZA4TAB4 PO; +TRAV04OPD OU
[2019-06-19 10:49] LABS: PLATELET COUNT, AUTOMATED 168 10^3/uL (150-450)
[2019-06-19 11:04] LABS: INR 1.07; PARTIAL THROMBOPLASTIN TIME 26.8 SECONDS (25.0-38.4); PROTHROMBIN TIME 13.6 SECONDS (11.8-14.0)
[2019-06-19 11:13] LABS: CREATININE FOR GFR 1.69 MG/DL (0.70-1.30); GLOMERULAR FILTRATION RATE 42.4 (>42)
== END ==
LOC: M LAB 09:43
PROVIDERS: ATTEND Physician Assistant
DX: M47.12 Other spondylosis with myelopathy, cervical region (principal); Z01.812 Encounter for preprocedural laboratory examination; M25.511 Pain in right shoulder

== ENCOUNTER 2019-08-29 20:38 | Emergency (ER) | payer OTHER ==
[~2019-08-29] VITALS: Ht 167.6 cm; Wt 79.7 kg
[~2019-08-29 20:38] MED LIST changes: -FENO145T13 PO; +FENO145T7 PO
[2019-08-29] MEDS ORDERED: LIDOCAINE 4% CREAM 5GM (LMX4) TOP ONE (21:30)
[2019-08-29] MEDS ORDERED: ANEC4CRE3 TOP (22:08)
[2019-08-29 22:14] VITALS: BP 154/82
--- NOTE | 2019-08-30 07:54 | REP ---
Right shoulder three views: There are no comparisons. There is acromioclavicular osteoarthritis. There are orthopedic screws in the humeral head. The The glenohumeral joint is unremarkable. There is no fracture or dislocation. Mineralization is normal. There are no calcifications or foreign bodies. Impression: Acromioclavicular osteoarthritis. Orthopedic screws in the humeral head. Electronically Signed by Emerson Delgado MD 08/30/2019 07:46 A
== END 2019-08-29 22:23 | disposition home or self-care (01) ==
LOC: M ED 20:38
DX: S43.401A Unspecified sprain of right shoulder joint, initial encounter (principal); X58.XXXA Exposure to other specified factors, initial encounter; Y92.9 Unspecified place or not applicable; Y93.9 Activity, unspecified; Y99.9 Unspecified external cause status; M19.011 Primary osteoarthritis, right shoulder; E11.9 Type 2 diabetes mellitus without complications; I10 Essential (primary) hypertension; E78.5 Hyperlipidemia, unspecified; E03.9 Hypothyroidism, unspecified; Z79.84 Long term (current) use of oral hypoglycemic drugs; Z79.899 Other long term (current) drug therapy

== ENCOUNTER → 2019-12-27 | Outpatient (CLI) | payer OTHER ==
[~2019-12-27] MED LIST changes: +ANEC4CRE3 TOP; +ASPI81TA85 PO; +FISH1000 PO; +HYDR25TAB PO; +KRIL1CAP7 PO; -METF-791 PO; +METF-838 PO; +MULTCAP PO; +PRESCAP PO
[2019-12-27 07:39] LABS: HEMATOCRIT 35.2 % (42.0-52.0); HEMOGLOBIN 11.5 g/dl (13.5-17.5); MEAN CORPUSCULAR HEMOGLOBIN 30.7 pg (27.0-33.0); MEAN CORPUSCULAR HGB CONC 32.7 g/dl (32.0-36.5); MEAN CORPUSCULAR VOLUME 94.1 fl (80.0-96.0); PLATELET COUNT, AUTOMATED 177 10^3/uL (150-450); RED BLOOD COUNT 3.74 10^6/uL (4.30-6.10); WHITE BLOOD COUNT 5.5 10^3/uL (4.0-10.0)
[2019-12-27 07:49] LABS: INR 1.08; PROTHROMBIN TIME 13.7 SECONDS (11.8-14.0)
[2019-12-27 08:02] LABS: BILIRUBIN,TOTAL 0.3 MG/DL (0.2-1.0); CALCIUM LEVEL 9.3 MG/DL (8.8-10.2); CREATININE FOR GFR 2.08 MG/DL (0.70-1.30); GLOMERULAR FILTRATION RATE 33.3 (>42); POTASSIUM SERUM 4.2 MEQ/L (3.5-5.1); TOTAL PROTEIN 7.8 GM/DL (6.4-8.2)
[2019-12-27 08:10] LABS: ERYTHROCYTE SEDIMENTATION RATE 41 mm/hr (0-20)
--- NOTE | 2019-12-27 08:20 | REP ---
Chest x-ray: Two views. History: Right shoulder osteoarthritis. Findings: There are two surgical anchors in the right proximal humerus. The lungs are well inflated and clear. The pleural angles are sharp. The aorta is somewhat tortuous. There are degenerative changes in the thoracic spine. Pulmonary vasculature is not increased. Impression: No active disease. Electronically Signed by Saul Liu MD 12/27/2019 08:12 A
--- NOTE | 2019-12-27 17:24 | ECGEPIP ---
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
== END ==
LOC: M LAB 07:07
PROVIDERS: ATTEND Orthopaedic Surgery Sports Medicine
DX: Z01.818 Encounter for other preprocedural examination (principal); M19.011 Primary osteoarthritis, right shoulder; E07.9 Disorder of thyroid, unspecified; D68.9 Coagulation defect, unspecified

== ENCOUNTER 2020-01-17 06:13 | Inpatient (IN) | payer MEDICARE, OTHER ==
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
[2020-01-17] VITALS (8 sets, daily range): BP systolic 94–112; BP diastolic 62–86
[~2020-01-17] VITALS: Ht 165.1 cm; Wt 78.9 kg
[~2020-01-17 06:13] MED LIST changes: +ACETAMINOPHEN 500 MG TAB PO ONE; -ASPI81TA85 PO; +ASPI81TA86 PO; +LR 1,000 ML IV ONE; +ceFAZolin SOD 2 GM in IV 1 EA IV ONE
[2020-01-17] MEDS ORDERED: ceFAZolin 1GM VIAL (J0690 PER 500MG) As Ordered ONE (07:09)
[2020-01-17] MEDS ORDERED: BUPIVACAINE HCL 0.25% 10ML VIAL As Ordered ONE (07:09)
[2020-01-17] MEDS ORDERED: TRANEXAMIC ACID 100 MG/ML 10ML VIAL As Ordered ONE (07:09)
[2020-01-17] MEDS ORDERED: BUPIVACAINE LIPOSOME/PF 1.3% 20ML VIAL (13.3MG/ML)(EXPAREL)(C9290 PER1MG) As Ordered ONE (07:10)
[2020-01-17] MEDS ORDERED: EPINEPHrine INJ 1 MG/ML 1ML AMP As Ordered ONE (07:10)
[2020-01-17] MEDS ORDERED: fentaNYL 100 MCG/2 ML INJECTION (J3010) As Ordered ONE ×2 (07:11→07:35)
[2020-01-17] MEDS ORDERED: MIDAZOLAM INJ 2MG/2ML VIAL (J2250 PER 1MG) As Ordered ONE ×2 (07:11→07:35)
[2020-01-17] MEDS ORDERED: ONDANSETRON 4MG/2ML VIAL As Ordered ONE (07:35)
[2020-01-17] MEDS ORDERED: ROCURONIUM BROMIDE 50 MG/5 ML VIAL As Ordered ONE (07:35)
[2020-01-17] MEDS ORDERED: propofoL 200 MG/20 ML VIAL As Ordered ONE (07:35)
[2020-01-17] MEDS ORDERED: LIDOCAINE 2% 100MG/5ML SDV (FOR ANES.) As Ordered ONE (07:35)
[2020-01-17] MEDS ORDERED: SUGAMMADEX SODIUM 500 MG/5 ML VIAL (BRIDION) As Ordered ONE (07:36)
[2020-01-17] MEDS ORDERED: MIDAZOLAM INJ 2MG/2ML VIAL (J2250 PER 1MG) IV ONE (07:45)
[2020-01-17] MEDS ORDERED: fentaNYL 100 MCG/2 ML INJECTION (J3010) IV ONE (07:45)
[2020-01-17] MEDS ORDERED: ePHEDrine SULFATE 25 MG/5 ML(5MG/ML) SYRINGE As Ordered ONE (08:16)
[2020-01-17] MEDS ORDERED: HYDROMORPHONE HCL 0.5 MG/ 0.5 ML SYRINGE (J1170 PER 1) IV PRN ×2 (10:15→12:15)
[2020-01-17] MEDS ORDERED: LR 1,000 ML IV SCH ×2 (10:15→12:15)
[2020-01-17] MEDS: NS 1,000 ML IV SCH ×3 (10:15→18:20)
[2020-01-17] MEDS ORDERED: oxyCODONE 5MG TAB PO PRN ×2 (10:15→12:15)
[2020-01-17] MEDS ORDERED: fentaNYL 100 MCG/2 ML INJECTION (J3010) IV PRN ×2 (10:15→12:15)
[2020-01-17] MEDS ORDERED: MORPHINE 2 MG/ML 1ML VIAL (J2270) IV PRN (10:15)
[2020-01-17] MEDS ORDERED: ACETAMINOPHEN TAB 650MG DOSE (2X325MG) PO PRN (10:15)
[2020-01-17] MEDS ORDERED: ONDANSETRON 4MG/2ML VIAL IV PRN ×3 (10:15→12:15)
[2020-01-17] MEDS: PERCOCET 5MG/325MG TAB PO PRN ×2 (15:08→22:19)
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
[2020-01-17] MEDS ORDERED: FENOFIBRATE 145 MG TAB (TRICOR) PO SCH (21:00)
[2020-01-17] MEDS ORDERED: LEVOTHYROXINE 88MCG TABLET (0.088 MG) PO SCH (21:00)
[2020-01-17] MEDS ORDERED: atenoloL 50 MG TAB PO SCH (21:00)
[2020-01-17] MEDS ORDERED: tiZANidine 4 MG TAB PO SCH (21:00)
[2020-01-17] MEDS ORDERED: LATANOPROST 0.005% OPHTH SOLN 2.5 ML OU SCH (21:00)
[2020-01-17] MEDS ORDERED: EZETIMIBE 10 MG TAB (ZETIA) PO SCH (21:00)
[2020-01-17] MEDS ORDERED: lisinopriL 10 MG TAB PO SCH (21:00)
[2020-01-18 02:00] VITALS: BP 121/68
[2020-01-18] MEDS: PERCOCET 5MG/325MG TAB PO PRN ×2 (03:09→09:34)
[2020-01-18 06:00] VITALS: BP 130/70
[2020-01-18 06:31] LABS: HEMATOCRIT 30.9 % (42.0-52.0); HEMOGLOBIN 9.8 g/dl (13.5-17.5); MEAN CORPUSCULAR HEMOGLOBIN 30.8 pg (27.0-33.0); MEAN CORPUSCULAR HGB CONC 31.7 g/dl (32.0-36.5); MEAN CORPUSCULAR VOLUME 97.2 fl (80.0-96.0); PLATELET COUNT, AUTOMATED 226 10^3/uL (150-450); RED BLOOD COUNT 3.18 10^6/uL (4.30-6.10); WHITE BLOOD COUNT 12.6 10^3/uL (4.0-10.0)
[2020-01-18 06:49] LABS: CREATININE FOR GFR 2.09 MG/DL (0.70-1.30); GLOMERULAR FILTRATION RATE 33.1 (>42); POTASSIUM SERUM 4.3 MEQ/L (3.5-5.1)
[2020-01-18] MEDS ORDERED: PERC5TAB12 PO (06:52)
[2020-01-18] MEDS ORDERED: ASPIRIN 81 MG ENTERIC TAB PO SCH (09:00)
--- NOTE | 2020-01-20 09:15 | RO ---
DATE OF PROCEDURE: 01/17/2020 PREOPERATIVE DIAGNOSIS: Right shoulder rotator cuff tear arthropathy. POSTOPERATIVE DIAGNOSIS: Right shoulder rotator cuff tear arthropathy. PLANNED PROCEDURE: Right shoulder reverse total shoulder arthroplasty. PROCEDURE PERFORMED: Right shoulder reverse total shoulder arthroplasty. SURGEON: Hugh Pena MD DEVELOPMENTAL EDUCATION INSTRUCTOR: Dr. Tavares TYPE OF ANESTHESIA: General anesthetic and block. BACK HANGER: MARCELLE Marie OPERATIVE PREAMBLE: This 74-year-old man experiencing pain and weakness in his shoulder. He had, had a previous subscapularis repair. MRI and clinical exam findings was consistent with rotator cuff tear arthropathy. He wished to go ahead with reverse total shoulder arthroplasty. I saw him in preoperative holding, reiterated the risks of surgery and marked the right upper extremity and proceeded to surgery after a preoperative block. OPERATIVE REPORT: Patient was brought to the operating theater. They placed supine on the beach chair position with the spider arm ray at the patient's right side. All bony prominences were padded. Legs were flexed up in the usual position with the foam leg ray positioner. All bony prominences were padded. Sequential compressive devices (SCDs) were used on the legs. Emmie Hugger was employed. 2 grams of IV Ancef and 2 grams of IV tranexamic acid was administered prior to the start of the case. General anesthesia was induced. The patient was sat up at 45 degree angle. The patient's mask was appropriately applied and head appropriately positioned in neutral. The right upper extremity was prepped and draped in the usual sterile fashion allowing over 3 minutes prep solution drying time. Preoperative time-out was performed confirming the site, the patient and surgery. I began by making a standard deltopectoral incision centered just lateral to the coracoid. I carried dissection down through skin and subcutaneous tissue to meticulous hemostasis. Identified cephalic vein and retracted that laterally. Placed the Andrade shoulder retractor. I incised the lateral border of the conjoined tendon. I retracted this medially. Identified the circumflex humeral vessels. I ligated these and used cautery to coagulate them. I ligated them using #2-0 Vicryl suture. I identified the long head of the biceps. I cut the biceps and performed a biceps tenodesis to the upper border of the pectoralis major, which I had slightly released the upper border up using electrocautery. I then identified the subscapularis muscle. I performed a subscapularis tenotomy. I placed stay sutures and the subscapularis #2 FiberWire suture. I finished the dissection through the rotator interval proximally. Arm was externally rotated and the humeral head dislocated and identified. The area between subscapularis and capsule was then opened with curved Dangelo scissors as well. I attempted to place an intramedullary guide. However, the patient had previous metal anchors from a subscapularis repair, which were preventing intramedullary guide placement. I instead held the guide in place, pinned it in place in the proper location and proper version in line with the arm at 20 degrees retroversion. Made the humeral head cut. Again, this was into the metal anchors that had to be removed. I removed both metal anchors anteriorly and one composite anchor posteriorly. The cut was able to be finished. I slightly distalized the cut after the initial cut. The guide was removed. Cut appeared appropriate. I released the capsule from the inferior medial aspect of the humeral neck all the way around posteriorly as well as removing any osteophytes from the medial humeral head and neck junction. I then placed four tip type retractors anteriorly and posteriorly in order to identify the glenoid. I removed the labrum circumferentially. I identified the middle of the glenoid. I placed the guidepin center, center aiming slightly anteriorly and superiorly. This appeared appropriate. Reaming was then achieved down to bleeding bone. I then used the center peg drill for SR glenoid medium peg size. This was thoroughly irrigated with pulse lavage. I then impacted the standard SR glenoid with medium peg appropriately positioned. I then drilled for the two superior and inferior screws. The superior most screw aimed for the coracoid base and the inferior subscapular body. The superior screw measured 25 mm. The inferior screw measured 30 mm. This was appropriately seated and had good bite into the bone. Again, pulse lavage was used to irrigate and then the 40 mm concentric glenosphere with extension inferiorly was then placed, tapped into place, and the center screw inserted and tightened down appropriately. I then turned my attention to the humeral side. I used sequential broaching up to a size 50 mm stem. This achieved good bite, circumferential fit with rotational stability as well as superior inferior stability. I then used the tongue-type attachment with a reverse reamer. I reamed down slowly and removed the trial. Canal was pulse lavaged. I then placed drill holes medial and lateral, one superior and one inferior at the insertion of subscapularis. I passed #2 FiberWire sutures in a concentric fashion to be held in place by the implant and loop inside the canal. I then chose the final implant 50 mm stem with reverse body. This was assembled on the back table. I impacted this into place with a loop of sutures behind the implant in appropriate 20 degree retroversion. This achieved stable and solid bite. I trialed with the standard size 40 mm liner with cutout laterally. This was stable in all directions. No obvious notching or impingement. Full range of motion. The patient was able to get the hand to the mouth. No laboring out. Deltoid appeared appropriately tensioned as did the conjoin tendon. Trial was removed. Pulse lavage used to irrigate the reverse body and final standard size 40 mm liner impacted into the place and the shoulder once again reduced. Arm was placed in slight internal rotation. Subscapularis was repaired using the previously inserted #2 FiberWire sutures and previous stay sutures. The wound was thoroughly irrigated once again. Deltopectoral interval was tagged with interrupted #1 Vicryl sutures. Subcutaneous tissue was closed with running #2-0 Vicryl sutures. Skin was cleaned with wet and dry dressing. 10 mL of saline was mixed with 10 mL of 0.25% Marcaine and 10 mL of Exparel. This was infiltrated in and around the skin and subcutaneous tissue of the shoulder. Skin was again cleaned with wet and dry dressing followed by application of Prineo dressing. This was allowed to fully dry and then ABDs were placed over top of cloth tape. The patient's upper extremity was placed into a sling with the arm on the abdomen. The patient was awoken from general anesthetic, transferred off the operating table and taken to the postanesthesia care unit in stable condition. All sponge, needle, and instrument counts were correct. Estimated blood loss was 200 mL. Plan: The patient is likely to remain in hospital for 1 day and be discharged home when they are comfortable and safe to be discharged. Followup in 2 weeks' time. They will leave the Prineo dressing in situ and debulk the dressing tomorrow. The therapeutic assistant, Fredi Mendes, was instrumental in achieving visualization, passing instruments, holding retractors, and completing the case. In terms of postoperative plan, they can start immediate pendulum exercises, as well as hand, wrist and elbow exercises, but no external rotation beyond neutral and no extension or reaching behind the back. JIMENEZ
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
== END 2020-01-18 12:20 | disposition home or self-care (01) | DRG 483 ==
LOC: M OR 06:13 → M MS5PR 11:40
PROVIDERS: ADMIT Orthopaedic Surgery Sports Medicine; ATTEND Orthopaedic Surgery Sports Medicine
PROC: 0RRJ00Z Replacement of Right Shoulder Joint with Reverse Ball and Socket Synthetic Substitute, Open Approach (ICD-10-PCS; principal; 2020-01-17 07:30)
DX: M75.101 Unspecified rotator cuff tear or rupture of right shoulder, not specified as traumatic (principal); I10 Essential (primary) hypertension; E11.9 Type 2 diabetes mellitus without complications; E78.5 Hyperlipidemia, unspecified; F41.9 Anxiety disorder, unspecified; H40.9 Unspecified glaucoma; Z79.82 Long term (current) use of aspirin; Z79.899 Other long term (current) drug therapy

== ENCOUNTER 2020-08-07 08:53 | Emergency (ER) | payer MEDICARE, OTHER ==
[~2020-08-07] VITALS: Ht 165.1 cm; Wt 79.5 kg
[~2020-08-07 08:53] MED LIST changes: -ACETAMINOPHEN 500 MG TAB PO ONE; +HYDR-3490 PO; -HYDR25TAB PO; +LISI10TA22 PO; -LISI10TA4 PO; -LR 1,000 ML IV ONE; +PERC5TAB12 PO; -ceFAZolin SOD 2 GM in IV 1 EA IV ONE
--- OUTSIDE RECORDS SUMMARY | 2020-08-07 09:07 | CCD ---
Author Author [facility] Organization [facility] Address Unknown Phone Unavailable Care Team Providers Care House Sitter Name Role Phone Cory Pena MD Unavailable Unavailable Mollison, Cory Reese MD Unavailable Unavailable Mollison, Cory Reese MD Unavailable Unavailable Mollison, Cory Reese MD Unavailable Unavailable Mollison, Cory Reese MD Unavailable Unavailable Mollison, Cory Reese MD Unavailable Unavailable Mollison, Cory Reese MD Unavailable Unavailable Mollison, Cory Reese MD Unavailable Unavailable Mollison, Cory Reese MD Unavailable Unavailable Mollison, Cory Reese MD Unavailable Unavailable Mollison, Cory Reese MD Unavailable Unavailable Mollison, Cory Reese MD Unavailable Unavailable Mollison, Cory Reese MD Unavailable Unavailable Mollison, Cory Reese MD Unavailable Unavailable Mollison, Cory Reese MD Unavailable Unavailable Mollison, Cory Reese MD Unavailable Unavailable Mollison, Cory Reese MD Unavailable Unavailable Mollison, Cory Reese MD Unavailable Unavailable Mollison, Cory Reese MD Unavailable Unavailable Mollison, Cory Reese MD Unavailable Unavailable Mollison, Cory Reese MD Unavailable Unavailable Mollison, Cory Reese MD Unavailable Unavailable Fish, Susie LANDRY, PA-C Unavailable Unavailabl e Fish, Susie LANDRY, PA-C Unavailable Unavailabl e Fish, Susie LANDRY, PA-C Unavailable Unavailabl e Fish, Susie LANDRY, PA-C Unavailable Unavailabl e Fish, Susie Flores MPAS, PA-C Unavailable Unavailabl e Fish, Susie LANDRY, PA-C Unavailable Unavailabl e Fish, Susie LANDRY, PA-C Unavailable Unavailabl e Fish, [facility], PA-C Unavailable Unavailabl e Fish, [facility], PA-C Unavailable Unavailabl e Fish, [facility], PA-C Unavailable Unavailabl e Fish, [facility], PA-C Unavailable Unavailabl e Fish, [facility], PA-C Unavailable Unavailabl e Fish, [facility], PA-C Unavailable Unavailabl e Fish, [facility], PA-C Unavailable Unavailabl e Fish, [facility], PA-C Unavailable Unavailabl e Fish, [facility], PA-C Unavailable Unavailabl e Fish, [facility], PA-C Unavailable Unavailabl e Fish, [facility], PA-C Unavailable Unavailabl e Fish, [facility], PA-C Unavailable Unavailabl e Fish, [facility], PA-C Unavailable Unavailabl e Fish, [facility], PA-C Unavailable Unavailabl e Fish, [facility], PA-C Unavailable Unavailabl e Fish, [facility], PA-C Unavailable Unavailabl e Fish, [facility], PA-C Unavailable Unavailabl e Fish, [facility], PA-C Unavailable Unavailabl e Fish, [facility], PA-C Unavailable Unavailabl e Fish, [facility], PA-C Unavailable Unavailabl e Fish, [facility], PA-C Unavailable Unavailabl e Fish, [facility], PA-C Unavailable Unavailabl e Fish, [facility], PA-C Unavailable Unavailabl e Fish, [facility], PA-C Unavailable Unavailabl e Fish, [facility], PA-C Unavailable Unavailabl e Fish, [facility], PA-C Unavailable Unavailabl e MollCory banks MD Unavailable Unavailable MollisonCory MD Unavailable Unavailable Mollison, Cory Reese MD Unavailable Unavailable Mollison, Cory Reese MD Unavailable Unavailable Mollison, Cory Reese MD Unavailable Unavailable Mollison, Cory Reese MD Unavailable Unavailable Mollison, Cory Reese MD Unavailable Unavailable MollisonCory MD Unavailable Unavailable MollisonCory MD Unavailable Unavailable MollisonCory MD Unavailable Unavailable MollisonCory MD Unavailable Unavailable MollisonCory MD Unavailable Unavailable Cory Pena MD Unavailable Unavailable Cory Pena MD Unavailable Unavailable Cory Pena MD Unavailable Unavailable Cory Pena MD Unavailable Unavailable Cory Pena MD Unavailable Unavailable Cory Pena MD Unavailable Unavailable Cory Pena MD Unavailable Unavailable Cory Pena MD Unavailable Unavailable Cory Pena MD Unavailable Unavailable Cory Pena MD Unavailable Unavailable Doremus, E Gena PA Unavailable Unavailable Doremus, E Gena PA Unavailable Unavailable Doremus, E Gena PA Unavailable Unavailable Doremus, E Gena PA Unavailable Unavailable Doremus, E Gena PA Unavailable Unavailable Doremus, E Gena PA Unavailable Unavailable Doremus, E Gena PA Unavailable Unavailable Doremus, E Gena PA Unavailable Unavailable Doremus, E Gena PA Unavailable Unavailable Doremus, E Gena PA Unavailable Unavailable Doremus, E Gena PA Unavailable Unavailable Doremus, E Gena PA Unavailable Unavailable Doremus, E Gena PA Unavailable Unavailable Doremus, E Gena PA Unavailable Unavailable Doremus, E Gena PA Unavailable Unavailable Doremus, E Gena PA Unavailable Unavailable Doremus, E Gena PA Unavailable Unavailable Doremus, E Gena PA Unavailable Unavailable Doremus, E Gena PA Unavailable Unavailable INDY, M TAVARES PA Unavailable Unavailable INDY, M TAVARES PA Unavailable Unavailable INDY, M TAVARES PA Unavailable Unavailable INDY, M TAVARES PA Unavailable Unavailable INDY, M TAVARES PA Unavailable Unavailable INDY, M TAVARES PA Unavailable Unavailable INDY, M TAVARES PA Unavailable Unavailable INDY, M TAVARES PA Unavailable Unavailable INDY, M TAVARES PA Unavailable Unavailable INDY, M TAVARES PA Unavailable Unavailable INDY, M TAVARES PA Unavailable Unavailable INDY, M TAVARES PA Unavailable Unavailable INDY, M TAVARES PA Unavailable Unavailable INDY, M TAVARES PA Unavailable Unavailable INDY, M TAVARES PA Unavailable Unavailable INDY, M TAVARES PA Unavailable Unavailable INDY, M TAVARES PA Unavailable Unavailable INDY, M TAVARES PA Unavailable Unavailable INDY, M TAVARES PA Unavailable Unavailable INDY, M TAVARES PA Unavailable Unavailable INDY, M TAVARES PA Unavailable Unavailable INDY, M TAVARES PA Unavailable Unavailable INDY, M TAVARES PA Unavailable Unavailable INDY, M TAVARES PA Unavailable Unavailable Re-disclosure Warning The records that you are about to access may contain information from federally-assisted alcohol or drug abuse programs. If such information is present, then the following federally mandated warning applies: This information has been disclosed to you from records protected by federal confidentiality rules (42 CFR part 2). The federal rules prohibit you from making any further disclosure of this information unless further disclosure is expressly permitted by the written consent of the person to whom it pertains or as otherwise permitted by 42 CFR part 2. A general authorization for the release of medical or other information is NOT sufficient for this purpose. The Federal rules restrict any use of the information to criminally investigate or prosecute any alcohol or drug abuse patient.The records that you are about to access may contain highly sensitive health information, the redisclosure of which is protected by Article 27-F of the [facility] Public Health law. If you continue you may have access to information: Regarding HIV / AIDS; Provided by facilities licensed or operated by the [facility] Office of Mental Health; or Provided by the [facility] Office for People With Developmental Disabilities. If such information is present, then the following [facility] mandated warning applies: This information has been disclosed to you from confidential records which are protected by state law. State law prohibits you from making any further disclosure of this information without the specific written consent of the person to whom it pertains, or as otherwise permitted by law. Any unauthorized further disclosure in violation of state law may result in a fine or assisted sentence or both. A general authorization for the release of medical or other information is NOT sufficient authorization for further disc losure. Family History Family Member Name Family Member Gender Family Member Status Date o f Status Description Data Source(s) Unknown Male Problem [facility] ([facility]) Encounters Encounter Providers Location Date Indications Data Source(s ) Office Visit Attender: Gena IBANEZ Physical Therapy 08:30:00 AM EDT [facility] ([facility]) Office Visit Attender: Sandra LANDRY PA-C Physical Therapy 01/15/2020 09:00:00 AM EDT [facility] ([facility]) Outpatient Attender: Hugh Anthony/Pallavi/Gatito/Damari indl 10/30/2019 08:30:00 AM EDT [facility] ([facility] Outpatient Referrer: Hugh Pena MD 09/02/2019 02:14:00 PM EST [facility] Outpatient Referrer: Hugh Pena MD 08/29/2019 10:56:00 AM EST [facility] Outpatient Referrer: Hugh Pena MD 08/29/2019 10:08:00 AM EST [facility] Outpatient Referrer: Hugh Pena MD 08/29/2019 10:00:00 AM EST [facility] Outpatient Referrer: Hugh Pena MD 08/29/2019 09:59:00 AM EST [facility] Outpatient Attender: Hugh Anthony/Pallavi/Gatito/Re indl 08/27/2019 07:50:00 AM EST [facility] ([facility] Outpatient Referrer: Hugh Pena MD 08/21/2019 09:46:00 AM EST [facility] Outpatient Referrer: Hugh Pena MD 08/21/2019 09:41:00 AM EST [facility] Outpatient Referrer: Hugh Pena MD 08/21/2019 09:15:00 AM EST [facility] Outpatient Referrer: Hugh Pena MD 08/20/2019 03:53:00 PM EST [facility] Outpatient 08/20/2019 03:50:00 PM EST [facility] Outpatient 08/20/2019 03:47:00 PM EST [facility] Outpatient Attender: Hugh Anthony/Pallavi/Gatito/Re indl 08/19/2019 07:00:00 AM EST [facility] ([facility]) Outpatient Attender: Hugh Anthony/Pallavi/Gatito/Re indl 07/29/2019 07:00:00 AM EST [facility] ([facility]) Outpatient Attender: TAVARES IBANEZ Physical Therapy 07/04 09:15:00 AM EST [facility] ([facility]) Outpatient Attender: TAVARES IBANEZ Physical Therapy 06/02 07:30:00 AM EST [facility] ([facility]) Medications Medication Brand Name Start Date Product Form Dose Route Admi nistrative Instructions Pharmacy Instructions Status Indications Reaction Description Data Source(s) Acetaminophen 325 MG / Oxycodone Hydrochloride 5 MG Or al Tablet Oxycodone-Acetaminophen 01/17/2020 12:00:00 AM EDT ORAL active [facility] ([facility], ) Acetaminophen 325 MG / Oxycodone Hydrochloride 5 MG Or al Tablet Oxycodone-Acetaminophen 12/25/2019 12:00:00 AM EDT ORAL completed [facility] ([facility], ) Mupirocin 0.02 MG/MG Topical Ointment [Bactroban] Bactroban 12/25/2019 12:00:00 AM EDT active [facility] ([facility], ) chlorhexidine gluconate 40 MG/ML Medicated Liquid Soap [Hibi clens] Hibiclens 12/25/2019 12:00:00 AM EDT TOPICAL active [facility] ([facility]) tramadol hydrochloride 50 MG Oral Tablet Tramadol HCL 09/17/2019 12:00:00 AM EDT completed [facility] ([facility]) tramadol hydrochloride 50 MG Oral Tablet Tramadol HCL 09/17/2019 12:00:00 AM EDT active [facility] ([facility]) Lidocaine 40 MG/ML Topical Cream Lidocaine 08/29/2019 12:00:00 AM EST active [facility] ([facility]) Insurance Providers Payer name Policy type / Coverage type Policy ID Covered alliance party ID Covered alliance party's relationship to ray Policy Ray Plan Information WELLCARE [id number] SP [id number] TRAVELERS NO FAULT [id number] SP [id number] MEDICARE COMPLETE [id number] SP [id number] TRAVELERS NO FAULT O [id number] S [id number] TRAVELERS NO FAULT O [id number] S [id number] WELLCARE [id number] SP [id number] [facility] Medigap Part B [id number] Self [id number] [place] B [id number] Self [id number] [employer] (Medicare) Medigap Part B [id number] Self [id number] Wellcare Commercial [id number] Self [id number] [employer] ([place]) Workers Compensation [id number] Self [id number] TRAVELERS NO FAULT [id number] SP [id number] [employer] MUTUAL NO FAULT [id number] SP [id number] AETNA MEDICARE [id number] SP [id number] ISMA AETNA MEDICARE [id number] SP [id number] ISMA AETNA MEDICARE [id number] SP [id number] ISMA MEDICARE COMPLETE [id number] SP [id number] MEDICARE COMPLETE [id number] SP [id number] MEDICARE COMPLETE [id number] SP [id number] TODAYS OPTIONS [id number] SP [id number] EXCELLUS BCBS P [id number] S [id number] MEDICARE -O/P [id number] 18 [id number] MEDICARE BLUE PPO [id number] SP [id number] MEDICARE COMPLETE [id number] SP [id number] BLUE CROSS BLUE SHIELD -O/P [id number] Problems, Conditions, and Diagnoses Code Display Name Description Problem Type Effective Dates Data Source(s) 81300097 Essential hypertension Essential hypertension Problem 07/29/2019 12:00:00 AM EST [facility] ([facility], ) Surgeries/Procedures Procedure Description Date Indications Data Source(s) RADEX SHOULDER COMPLETE MINIMUM 2 VIEWS 06/16/2020 12: 00:00 AM EST [facility] ([facility]) THERAPEUTIC PX 1/> AREAS EACH 15 MIN EXERCISES 12:00:00 AM EDT [facility] ([facility]) THERAPEUTIC PX 1/> AREAS EACH 15 MIN EXERCISES 12:00:00 AM EDT [facility] ([facility]) THERAPEUTIC PX 1/> AREAS EACH 15 MIN EXERCISES 12:00:00 AM EDT [facility] ([facility]) THERAPEUTIC PX 1/> AREAS EACH 15 MIN EXERCISES 12:00:00 AM EDT [facility] ([facility]) THERAPEUTIC PX 1/> AREAS EACH 15 MIN EXERCISES 12:00:00 AM EDT [facility] ([facility]) THERAPEUTIC PX 1/> AREAS EACH 15 MIN EXERCISES 12:00:00 AM EDT [facility] ([facility]) THERAPEUTIC PX 1/> AREAS EACH 15 MIN EXERCISES 12:00:00 AM EDT [facility] ([facility] THERAPEUTIC PX 1/> AREAS EACH 15 MIN EXERCISES 12:00:00 AM EDT [facility] ([facility] ) THERAPEUTIC PX 1/> AREAS EACH 15 MIN EXERCISES 12:00:00 AM EDT [facility] ([facility] ) THERAPEUTIC PX 1/> AREAS EACH 15 MIN EXERCISES 12:00:00 AM EDT [facility] ([facility] ) THERAPEUTIC PX 1/> AREAS EACH 15 MIN EXERCISES 12:00:00 AM EDT [facility] ([facility] ) THERAPEUTIC PX 1/> AREAS EACH 15 MIN EXERCISES 12:00:00 AM EDT [facility] ([facility] ) THERAPEUTIC PX 1/> AREAS EACH 15 MIN EXERCISES 12:00:00 AM EDT [facility] ([facility] ) THERAPEUTIC PX 1/> AREAS EACH 15 MIN EXERCISES 12:00:00 AM EDT [facility] ([facility] ) THERAPEUTIC PX 1/> AREAS EACH 15 MIN EXERCISES 12:00:00 AM EDT [facility] ([facility] ) THERAPEUTIC PX 1/> AREAS EACH 15 MIN EXERCISES 12:00:00 AM EDT [facility] ([facility] ) THERAPEUTIC PX 1/> AREAS EACH 15 MIN EXERCISES 12:00:00 AM EDT [facility] ([facility] ) THERAPEUTIC PX 1/> AREAS EACH 15 MIN EXERCISES 12:00:00 AM EDT [facility] ([facility]) THERAPEUTIC PX 1/> AREAS EACH 15 MIN EXERCISES 12:00:00 AM EDT [facility] ([facility] ) THERAPEUTIC PX 1/> AREAS EACH 15 MIN EXERCISES 12:00:00 AM EDT [facility] ([facility]) THERAPEUTIC PX 1/> AREAS EACH 15 MIN EXERCISES 12:00:00 AM EDT [facility] ([facility] ) THERAPEUTIC PX 1/> AREAS EACH 15 MIN EXERCISES 12:00:00 AM EDT [facility] ([facility] ) THERAPEUTIC PX 1/> AREAS EACH 15 MIN EXERCISES 12:00:00 AM EDT [facility] ([facility] ) RADEX SHOULDER COMPLETE MINIMUM 2 VIEWS 02/28/2020 12: 00:00 AM EDT [facility] ([facility] ) THERAPEUTIC PX 1/> AREAS EACH 15 MIN EXERCISES 12:00:00 AM EDT [facility] ([facility]) THERAPEUTIC PX 1/> AREAS EACH 15 MIN EXERCISES 12:00:00 AM EDT [facility] ([facility] ) X-Ray Shoulder Complete 02/28/2020 12:00:00 AM EDT [facility] ([facility] ) THERAPEUTIC PX 1/> AREAS EACH 15 MIN EXERCISES 12:00:00 AM EDT [facility] ([facility] ) THERAPEUTIC PX 1/> AREAS EACH 15 MIN EXERCISES 12:00:00 AM EDT [facility] ([facility] ) THERAPEUTIC PX 1/> AREAS EACH 15 MIN EXERCISES 12:00:00 AM EDT [facility] ([facility] ) THERAPEUTIC PX 1/> AREAS EACH 15 MIN EXERCISES 12:00:00 AM EDT [facility] ([facility] ) THERAPEUTIC PX 1/> AREAS EACH 15 MIN EXERCISES 12:00:00 AM EDT [facility] ([facility] ) THERAPEUTIC PX 1/> AREAS EACH 15 MIN EXERCISES 12:00:00 AM EDT [facility] ([facility] ) THERAPEUTIC PX 1/> AREAS EACH 15 MIN EXERCISES 12:00:00 AM EDT [facility] ([facility] ) THERAPEUTIC PX 1/> AREAS EACH 15 MIN EXERCISES 12:00:00 AM EDT [facility] ([facility] ) THERAPEUTIC PX 1/> AREAS EACH 15 MIN EXERCISES 12:00:00 AM EDT [facility] ([facility] ) THERAPEUTIC PX 1/> AREAS EACH 15 MIN EXERCISES 12:00:00 AM EDT [facility] ([facility]) Physical Therapy Eval - Low Complexity 02/07/2020 12:0 0:00 AM EDT [facility] ([facility] ) ARTHROPLASTY GLENOHUMERAL JOINT TOTAL SHOULDER 020 12:00:00 AM EDT [facility] ([facility]) Inject/Drain Arthrocentesis Major Joint/Bursa/Ganglion Cyst 11/13/2019 12:00:00 AM EDT [facility] ([facility]) Inject/Drain Arthrocentesis Major Joint/Bursa/Ganglion Cyst 10/14/2019 12:00:00 AM EDT [facility] ([facility]) Inject/Drain Arthrocentesis Major Joint/Bursa/Ganglion Cyst 07/29/2019 12:00:00 AM EST [facility] ([facility]) Injec Anesthetic Agent/Steroid Trans Epidural Cerv/Thor Sing le 07/08/2019 12:00:00 AM EST [facility] Epidurography Radiological Supervision & Interpretation 07/08/2019 12:00:00 AM EST [facility] ([facility]) Moderate Sedation Services; Same Phys Intl 15 Mins; PT >= 5 Years 07/08/2019 12:00:00 AM EST [facility] ([facility]) Results ID Date Data Source [id number] 01/12/2020 10:30:00 AM EDT [facility] ([facility]) Name Value Range Interpretation Code Description Data Basilia rce(s) Supporting Document(s) Laboratory test finding (navigational concept) Laboratory test result [facility] ([facility]) Testing was performed using the marcie(R) SARS-CoV-2 test. This test was developed and its performance characteristics determined by [employer]. This test has not been FDA cleared or approved. This test has been authorized by FDA under an Emergency Use Authorization (EUA). This test is only authorized for the duration of time the declaration that circumstances exist justifying the authorization of the emergency use of in vitro diagnostic tests for detection of SARS-CoV-2 virus and/or diagnosis of COVID-19 infection under section 564(b)(1) of the Act, 21 U.S.C. 360bbb-3(b)(1), unless the authorization is terminated or revoked sooner. When diagnostic testing is negative, the possibility of a false negative result should be considered in the context of a patient's recent exposures and the presence of clinical signs and symptoms consistent with COVID-19. An individual without symptoms of COVID-19 and who is not shedding SARS-CoV-2 virus would expect to have a negative (not detected) result in this assay. Performed at: - [facility] [address] [id number] Social Worker Masters: Kelly Salcedo MD, Phone: [phone] Not Detected ID Date Data Source [id number] 01/12/2020 10:30:00 AM EDT [facility] Name Value Range Interpretation Code Description Data Basilia rce(s) Supporting Document(s) SARS coronavirus 2 RNA [facility] This lab was ordered by [facility] and reported by [facility]. ID Date Data Source [id number] 12/27/2019 07:20:00 AM EDT [facility] ([facility]) Name Value Range Interpretation Code Description Data Basilia rce(s) Supporting Document(s) Erythrocyte sedimentation rate by Westergren method 41 mm/hr 0-20 Above high normal [facility] ([facility]) ID Date Data Source [id number] 12/27/2019 07:20:00 AM EDT [facility] ([facility]) Name Value Range Interpretation Code Description Data Basilia rce(s) Supporting Document(s) White Blood Count 5.5 10 4.0-10.0 Normal (applies to non-numeri c results) [facility]) Hematocrit 35.2 % 42.0-52.0 Below low normal [facility] ( [facility]) Red Blood Count 3.74 10 4.30-6.10 Below low normal [facility] ([facility]) Hemoglobin 11.5 g/dL 13.5-17.5 Below low normal [facility] ( [facility]) Mean Corpuscular HGB Conc 32.7 g/dL 32.0-36.5 Normal (applies to non-numeric results) [facility]) Mean Corpuscular Hemoglobin 30.7 pg 27.0-33.0 Norm al (applies to non-numeric results) [facility]) Mean Corpuscular Volume 94.1 fl 80.0-96.0 Normal ( applies to non-numeric results) [facility] ([facility]) Nucleated Red Blood Cell % 0.0 % 0-0 Normal (applies to n on-numeric results) [facility] ([facility]) Red Cell Distribution Width 12.8 % 11.5-14.5 Norm al (applies to non-numeric results) [facility] ([facility]) Platelet Count, Automated 177 10 150-450 Normal (applies to non-numeric results) [facility] ([facility]) ID Date Data Source [id number] 12/27/2019 07:20:00 AM EDT [facility] ([facility]) Name Value Range Interpretation Code Description Data Basilia rce(s) Supporting Document(s) Glucose, Fasting 104 mg/dL 70-100 Above high normal [facility] ([facility]) Blood Urea Nitrogen 37 mg/dL 7-18 Above high normal [facility] ([facility]) Creatinine For GFR 2.08 mg/dL 0.70-1.30 Above high normal [facility] ([facility]) Glomerular Filtration Rate 33.3 Below low normal [facility] ([facility]) <content>Units are mL/min/1.73 m2</content>
<content></content>
<content>Chronic Kidney Disease Staging per NKF:</content>
<content></content>
<content>Stage I & II GFR >=60 Normal to Mildly Decreased</content>
<content>Stage III GFR 30- 59 Moderately Decreased</content>
<content>Stage IV GFR 15-29 Severely Decreased</content>
<content>Stage V GFR <15 Very Little GFR Left</content>
<content>ESRD GFR <15 on ANTIQUE DEALER</content>
<content></content> Potassium Serum 4.2 meq/L 3.5-5.1 Normal (applies to non-numeric results) [facility] ([facility]) Sodium Level 138 meq/L 136-145 Normal (applies to non-numeric res ults) [facility] ([facility] ) Chloride Level 107 meq/L 98-107 Normal (applies to non-numeric r esults) [facility] ([facility]) Calcium Level 9.3 mg/dL 8.8-10.2 Normal (applies to non-numeric re sults) [facility] ([facility]) Carbon Dioxide Level 24 meq/L 21-32 Normal (applies to non-num hamilton results) [facility] ([facility]) Anion Gap 7 meq/L 8-16 Below low normal [facility] & [facility] ( [facility]) Alt/SGPT 30 U/L 12-78 Normal (applies to non-numeric resul ts) [facility] ([facility]) Ast/Sgot 31 U/L 7-37 Normal (applies to non-numeric resul ts) [facility] ([facility]) Alkaline Phosphatase 40 U/L 45-117 Below low normal [facility] ([facility]) Total Protein 7.8 GM/DL 6.4-8.2 Normal (applies to non-numeric re sults) [facility] ([facility]) Bilirubin,Total 0.3 mg/dL 0.2-1.0 Normal (applies to non-numeric results) [facility] ([facility]) Albumin/Globulin Ratio 1.1 Normal (applies to non-n umeric results) [facility] ([facility]) Albumin 4.0 GM/DL 3.2-5.2 Normal (applies to non-numeric resul ts) [facility] ([facility]) ID Date Data Source [id number] 12/27/2019 07:20:00 AM EDT [facility] ([facility]) Name Value Range Interpretation Code Description Data Basilia rce(s) Supporting Document(s) Inr 1.08 Normal (applies to non-numeric resul ts) [facility] ([facility]) THERAPUTIC HUMAN INR VALUES INDICATIONS NORMAL RANGES PROPHYLAXIS/TREATMENT OF: VENOUS THROMBOSIS 2.0-3.0 PULMONARY EMBOLISM 2.0-3.0 PREVENTION OF SYSTEMIC EMBOLISM FROM: TISSUE HEART VALVES 2.0-3.0 ACUTE MYOCARDIAL INFARCTION 2.0-3.0 VALVULAR HEART DISEASE 2.0-3.0 ATRIAL FIBRILLATION 2.0-3.0 MECHANICAL VALVES(HIGH RISK) 2.5-3.5 RECURRENT MYOCARDIAL INFARCTION 2.5-3.5 Prothrombin Time 13.7 s 11.8-14.0 Normal (applies to non-numeric results) [facility] ([facility], ) ID Date Data Source [id number] 09/17/2019 11:40:00 AM EDT [facility] ([facility], ) Name Value Range Interpretation Code Description Data Basilia rce(s) Supporting Document(s) Laboratory test finding (navigational concept) Laboratory test result [facility] ([facility], ) ID Date Data Source [id number] 09/06/2019 12:00:00 AM EST [facility] Hugh Pena MD Patient Name: CRESCENCIO [id number] [facility] Date of : 1945[address] Date of Exam: 09/06/2019KENRICK Yeboah [id number]#: Fax: [phone] EXAM: CT UPPER RIGHT EXTREMITY WITHOUT CONTRASTPROCEDURE INFORMATION:Exam: CT Right Upper Extremity Without Contrast, ShoulderExam date and time: 09/06/2019 9:07 AM Age: 74 years oldClinical indication: Prior surgery; Surgery date: 6+ months; Surgery type:Shoulder surgery done in 06/2010 at [facility]. ; Patient HX: Rightshoulder is extremely painful. Shoulder freezes on PT and he has to pull itto move it. Unable to move much while here. ; Additional info: Prior mridone on [facility] lately.TECHNIQUE: Imaging protocol: CT of the Right upper extremity withoutcontrast was performed. Exam focused on the shoulder. Radiationoptimization: All CT scans at this facility use at least one of these doseoptimization techniques: automated exposure control; mA and/or kVadjustment per patient size (includes targeted exams where dose is matchedto clinical indication); or iterative reconstruction.COMPARISON: No relevant prior studies available.FINDINGS:Bones/joints: There are 2 screws in the humeral head consistent with thehistory of prior surgery. There is no fracture. There is no dislocation.There are small marginal osteophytes at the glenohumeral joint. There aresmall marginal osteophytes at the acromioclavicular joint. No lytic osseouslesion. No bone erosion or periosteal reaction.Soft tissues: Normal. IMPRESSION:1. No fracture or dislocation.2. Postoperative changes of the humeral head.3. 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 Electronically Signed - CONRADAD 09/11/19 8:23 Name Value Range Interpretation Code Description Data Basilia rce(s) Supporting Document(s) ID Date Data Source [id number] 08/21/2019 12:00:00 AM [facility] Hugh Pena MD Patient Name: LOPEZ ROQUE[address] [facility] Date of : 1945[address] Date of Exam: [facility]/2019[facility] [id number] Fax: [phone] EXAM: ARTHROCENTESIS RTSHLDR-ASPIR/INJ STEROID/PAIN MEDSRIGHT SHOULDER INJECTION:The procedure was performed by JOSE New under the directsupervision of Dr. Gudino.The benefits and risks including, but not limited to pain, infection,bleeding, and anaphylaxis were explained to the patient and informedconsent was obtained.The right glenohumeral joint space was localized using fluoroscopicguidance. The skin was prepped and draped in a sterile fashion. 1%Lidocaine was used as a local anesthetic. Using fluoroscopic guidance, a#22 gauge spinal needle was inserted and advanced into the joint. 0.5 ccof Omnipaque 300 was injected to verify placement. 4 cc of a solutioncontaining 3 cc of 1% Lidocaine and 1 cc of Kenalog 40 mg was injected intothe joint space. The needle was then removed.The patient tolerated the procedure well and there were no immediatecomplications.Fluoroscopy time was 1 second at 3 pulses/second. This is equal to 0.25seconds continuous fluoroscopy time which is a 75% reduction in radiation.Emerson Gudino MDDJCory/jmcTjaylen you for referring CRESCENCIO ROQUE to our office. Electronically Signed - EMERSON GUDINO MD 08/21/19 13:50 Name Value Range Interpretation Code Description Data Basilia rce(s) Supporting Document(s) ID Date Data Source [id number] 08/21/2019 12:00:00 AM EST [facility] Hugh Pena MD Patient Name: CRESCENCIO [address]QUE[address] [place] [address] Date of : 1945[address] Date of Exam: 08/21/2019KENRICK Yeboah [id number]#: Fax: [phone] EXAM: ARTHROCENTESIS RTSHLDR-ASPIR/INJ STEROID/PAIN MEDSRIGHT SHOULDER INJECTION:The procedure was performed by JOSE New under the directsupervision of Dr. Gudino.The benefits and risks including, but not limited to pain, infection,bleeding, and anaphylaxis were explained to the patient and informedconsent was obtained.The right glenohumeral joint space was localized using fluoroscopicguidance. The skin was prepped and draped in a sterile fashion. 1%Lidocaine was used as a local anesthetic. Using fluoroscopic guidance, a#22 gauge spinal needle was inserted and advanced into the joint. 0.5 ccof Omnipaque 300 was injected to verify placement. 4 cc of a solutioncontaining 3 cc of 1% Lidocaine and 1 cc of Kenalog 40 mg was injected intothe joint space. The needle was then removed.The patient tolerated the procedure well and there were no immediatecomplications.Fluoroscopy time was 1 second at 3 pulses/second. This is equal to 0.25seconds continuous fluoroscopy time which is a 75% reduction in radiation.AZAR Bird/Selam you for referring CRESCENCIO ROQUE to our office. Electronically Signed - EMERSON GUDINO MD 08/21/19 13:50 Name Value Range Interpretation Code Description Data Basilia rce(s) Supporting Document(s) ID Date Data Source [id number] 06/24/2019 08:23:00 AM EST [facility] ([facility] ) Name Value Range Interpretation Code Description Data Basilia rce(s) Supporting Document(s) Laboratory test finding (navigational concept) <pending> [facility] ([facility] ) ID Date Data Source [id number] 06/19/2019 10:03:00 AM EST [facility] ([facility]) Name Value Range Interpretation Code Description Data Basilia rce(s) Supporting Document(s) Glomerular filtration rate/1.73 sq M.pre dicted [Volume Rate/Area] in Serum or Plasma by Creatinine-based formula (MDRD) 42.4 [facility] ([facility]) ID Date Data Source [id number] 06/19/2019 10:03:00 AM EST [facility] ([facility]) Name Value Range Interpretation Code Description Data Basilia rce(s) Supporting Document(s) Creatinine [Mass/volume] in Serum or Plasma 1.69 0.70-1.30 [facility] ([facility]) ID Date Data Source [id number] 06/19/2019 10:03:00 AM EST [facility] ([facility]) Name Value Range Interpretation Code Description Data Basilia rce(s) Supporting Document(s) Urea nitrogen [Mass/volume] in Serum or Plasma 22 7-18 [facility] ([facility]) ID Date Data Source [id number] 06/19/2019 10:03:00 AM EST [facility] ([facility]) Name Value Range Interpretation Code Description Data Basilia rce(s) Supporting Document(s) aPTT in Blood by Coagulation assay 26.8 25.0-38.4 [facility] ([facility]) ID Date Data Source [id number] 06/19/2019 10:03:00 AM EST [facility] ([facility]) Name Value Range Interpretation Code Description Data Basilia rce(s) Supporting Document(s) INR in Platelet poor plasma by Coagulation assay 1.07 [facility] ([facility]) ID Date Data Source [id number] 06/19/2019 10:03:00 AM EST [facility] ([facility]) Name Value Range Interpretation Code Description Data Basilia rce(s) Supporting Document(s) Prothrombin time (PT) 13.6 11.8-14.0 [facility] ([facility]) ID Date Data Source [id number] 06/19/2019 10:03:00 AM EST [facility] ([facility]) Name Value Range Interpretation Code Description Data Basilia rce(s) Supporting Document(s) Platelets [#/volume] in Blood by Automated count 168 150-450 [facility] ([facility], ) ID Date Data Source [id number] 06/19/2019 10:03:00 AM EST [facility] ([facility]) Name Value Range Interpretation Code Description Data Basilia rce(s) Supporting Document(s) Prothrombin time (PT) 26.8 s 25.0-38.4 [facility] ([facility]) ID Date Data Source [id number] 06/19/2019 10:03:00 AM EST [facility] ([facility]) Name Value Range Interpretation Code Description Data Basilia rce(s) Supporting Document(s) Prothrombin Time 13.6 s 11.8-14.0 [facility] ([facility]) Inr 1.07 [facility] ([facility]) THERAPUTIC HUMAN INR VALUES INDICATIONS NORMAL RANGES PROPHYLAXIS/TREATMENT OF: VENOUS THROMBOSIS 2.0-3.0 PULMONARY EMBOLISM 2.0-3.0 PREVENTION OF SYSTEMIC EMBOLISM FROM: TISSUE HEART VALVES 2.0-3.0 ACUTE MYOCARDIAL INFARCTION 2.0-3.0 VALVULAR HEART DISEASE 2.0-3.0 ATRIAL FIBRILLATION 2.0-3.0 MECHANICAL VALVES(HIGH RISK) 2.5-3.5 RECURRENT MYOCARDIAL INFARCTION 2.5-3.5 ID Date Data Source [id number] 06/19/2019 10:03:00 AM EST [facility] ([facility]) Name Value Range Interpretation Code Description Data Basilia rce(s) Supporting Document(s) Platelets [#/volume] in Blood by Automated count 168 10 150-450 [facility] ([facility]) ID Date Data Source [id number] 06/19/2019 10:03:00 AM EST [facility] ([facility]) Name Value Range Interpretation Code Description Data Basilia rce(s) Supporting Document(s) Creatinine For GFR 1.69 mg/dL 0.70-1.30 [facility] ([facility]) Glomerular Filtration Rate 42.4 [facility] ([facility]) <content>Units are mL/min/1.73 m2</content>
<content></content>
<content>Chronic Kidney Disease Staging per NKF:</content>
<content></content>
<content>Stage I & II GFR >=60 Normal to Mildly Decreased</content>
<content>Stage III GFR 30- 59 Moderately Decreased</content>
<content>Stage IV GFR 15-29 Severely Decreased</content>
<content>Stage V GFR <15 Very Little GFR Left</content>
<content>ESRD GFR <15 on ANTIQUE DEALER</content>
<content></content> ID Date Data Source [id number] 06/19/2019 10:03:00 AM EST [facility] ([facility]) Name Value Range Interpretation Code Description Data Basilia rce(s) Supporting Document(s) Urea nitrogen [Mass/volume] in Serum or Plasma 22 mg/dL 7-18 [facility] ([facility]) Procedure Social History Code Duration Value Status Description Data Source(s ) Smoking 06/19/2019 12:00:00 AM EST Patient is a former smoker completed Patient is a former smoker [facility] ([facility]) Vital Signs ID Date Data Source UNK Name Value Range Interpretation Code Description Data Source(s) Body temperature 96.2 [degF] 96.2 [degF] [facility] ([facility]) Respiratory rate 16 /min 16 /min [facility] ( [facility]) Body mass index (BMI) [Ratio] 28.1 kg/m2 28.1 k g/m2 [facility] ([facility]) Body weight 166.12 [lb_av] 166.12 [lb_av] [facility] ([facility]) Body height 64.5 [in_i] 64.5 [in_i] [facility] ([facility]) 5'4.50" Body temperature 97.4 [degF] 97.4 [degF] [facility] ([facility]) Heart rate 72 /min 72 /min [facility] ([facility]) Diastolic blood pressure 74 mm[Hg] 74 mm[Hg] [facility] ([facility]) Systolic blood pressure 128 mm[Hg] 128 mm[Hg] [facility] ([facility]) Body weight 79.380 kg 79.380 kg [facility] [place] body weight 125 [lb_av] 125 [lb_av] [facility] ([facility]) Body mass index (BMI) [Ratio] 29.1 kg/m2 29.1 k g/m2 [facility] Body weight 175.00 [lb_av] 175.00 [lb_av] [facility] ([facility]) Body height 65 [in_i] 65 [in_i] [facility] ([facility]) 5'5" Body weight 79.701 kg 79.701 kg [facility] ([facility]) Body mass index (BMI) [Ratio] 28.0 kg/m2 28.0 k g/m2 [facility]) Body weight 175.69 [lb_av] 175.69 [lb_av] [facility] ([facility]) Body temperature 97.6 [degF] 97.6 [degF] [facility] ([facility]) Body mass index (BMI) [Ratio] 28.2 kg/m2 28.2 k g/m2 [facility] ([facility]) Body weight 175.00 [lb_av] 175.00 [lb_av] [facility] ([facility]) Body height 66 [in_i] 66 [in_i] [facility] ([facility]) 5'6"
--- OUTSIDE RECORDS SUMMARY | 2020-08-07 09:07 | CCD | Continuity of Care Document ---
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 Name Role Phone Nick Bloom AUTM [phone] Vu Pimentel MD AUTM [phone] Problems Active Problems Provider Date Type 2 diabetes mellitus Vu Pimentel MD Onset: 12/29/19 19 Essential hypertension Vu Pimentel MD Onset: 12/28/2018 Social History Type Date Description Comments Sex Unknown ETOH Use Denies alcohol use Tobacco Use Start: Unknown End: Unknown Patient is a former smoker quit 1973 Smoking Status Reviewed: 06/19/19 Patient is a former smoker qu it 1974 Allergies, Adverse Reactions, Alerts Active Allergies Reaction Severity Comments Date NKDA 12/28/2018 Air Conditioning Post nasal drip 04/25/20 19 Medications Active Medications SIG Qnty Indications Ordering Provide r Date Tramadol HCL 50mg Tablets 1 every 6 hours as needed pain 40tabs Chris Boland MD 09/17/2019 Tizanidine HCL 4mg Tablets TK 1 T PO qam And TK 2 TS PO Before Bed Unknown Metformin HCL ER 500mg Tablets ER 24HR TK 2 TS PO bid Unknown Lisinopril 10mg Tablets TK 1 T PO Once D Unknown Levothyroxine Sodium 88mcg Tablets TK 1 T PO qd Unknown Fenofibrate 145mg Tablets TK 1 T PO Once D Unknown Ezetimibe 10mg Tablets TK 1 T PO Once D Unknown Atenolol 100mg Tablets TK 1 T PO Once D Unknown Travatan Z 0.004% Solution White Walt, DO Fluzone High-Dose 0.5ml Penny Adm 0.5ML Im Utd Unknown Eye Drops 0.012-0.2% Solution Unknown Immunizations Description No Information Available Vital Signs Date Vital Result Comment 01/31/2020 8:32am Body Temperature 96.2 F 01/15/2020 11:27am BP Systolic 128 mmHg BP Diastolic 74 mmHg Heart Rate 72 /min Body Temperature 97.4 F Height 64.5 inches 5'4.50" Weight 166.12 lb BMI (Body Mass Index) 28.1 kg/m2 Respiratory Rate 16 /min Results Description No Information Available Procedures Date Code Description Status 06/16/2020 33092 X-Ray Shoulder Complete Complete d 04/17/2020 96108 Therapeutic Procedure, Each 15 M inutes Completed 04/13/2020 69900 Therapeutic Procedure, Each 15 M inutes Completed 04/13/2020 62325 Therapeutic Procedure, Each 15 M inutes Completed 04/06/2020 50676 Therapeutic Procedure, Each 15 M inutes Completed 04/06/2020 15953 Therapeutic Procedure, Each 15 M inutes Completed 04/02/2020 89750 Therapeutic Procedure, Each 15 M inutes Completed 04/02/2020 10142 Therapeutic Procedure, Each 15 M inutes Completed 03/31/2020 07664 Therapeutic Procedure, Each 15 M inutes Completed 03/31/2020 99068 Therapeutic Procedure, Each 15 M inutes Completed 03/26/2020 56378 Therapeutic Procedure, Each 15 M inutes Completed 03/26/2020 77463 Therapeutic Procedure, Each 15 M inutes Completed 03/23/2020 17059 Therapeutic Procedure, Each 15 M inutes Completed 03/23/2020 95519 Therapeutic Procedure, Each 15 M inutes Completed 03/16/2020 11713 Therapeutic Procedure, Each 15 M inutes Completed 03/16/2020 43070 Therapeutic Procedure, Each 15 M inutes Completed 03/13/2020 25092 Therapeutic Procedure, Each 15 M inutes Completed 03/13/2020 35595 Therapeutic Procedure, Each 15 M inutes Completed 03/11/2020 97979 Therapeutic Procedure, Each 15 M inutes Completed 03/11/2020 35044 Therapeutic Procedure, Each 15 M inutes Completed 03/05/2020 45492 Therapeutic Procedure, Each 15 M inutes Completed 03/05/2020 54586 Therapeutic Procedure, Each 15 M inutes Completed 03/02/2020 13138 Therapeutic Procedure, Each 15 M inutes Completed 03/02/2020 22840 Therapeutic Procedure, Each 15 M inutes Completed 02/28/2020 83707 Therapeutic Procedure, Each 15 M inutes Completed 02/28/2020 76321 Therapeutic Procedure, Each 15 M inutes Completed 02/28/2020 38899 X-Ray Shoulder Complete Complete d 02/26/2020 00089 Therapeutic Procedure, Each 15 M inutes Completed 02/26/2020 03354 Therapeutic Procedure, Each 15 M inutes Completed 02/21/2020 48983 Therapeutic Procedure, Each 15 M inutes Completed 02/21/2020 99218 Therapeutic Procedure, Each 15 M inutes Completed 02/19/2020 92485 Therapeutic Procedure, Each 15 M inutes Completed 02/19/2020 53918 Therapeutic Procedure, Each 15 M inutes Completed 02/14/2020 09865 Therapeutic Procedure, Each 15 M inutes Completed 02/14/2020 05280 Therapeutic Procedure, Each 15 M inutes Completed 02/12/2020 65331 Therapeutic Procedure, Each 15 M inutes Completed 02/12/2020 71027 Therapeutic Procedure, Each 15 M inutes Completed 02/07/2020 75420 Physical Therapy Eval - Low Comp lexity Completed Medical Devices Description No Information Available Encounters Type Date Location Provider Dx Diagnosis Office Visit [facility] Z4 7.1 Aftercare following joint replacement surgery Z96.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 Office Visit 01/15/2020 9[facility] Z01.818 Encounter for other preprocedural examination M19.011 Primary osteoarthritis, righ t shoulder Assessments Date Code Description Provider 06/16/2020 Z47.1 Aftercare following joint replac ement surgery Chevy Mcadams MD 06/16/2020 Z96.611 Presence of right artificial homero ulder joint Chevy Mcadams MD 04/17/2020 Z47.1 Aftercare following joint replac ement surgery Imer Irby, PT, DPT 04/17/2020 Z96.611 Presence of right artificial homero ulder joint Imer Irby, PT, DPT 04/13/2020 Z47.1 Aftercare following joint replac ement surgery Carmel Tijerina, FARM MANAGEMENT SUPERVISOR 04/13/2020 Z96.611 Presence of right artificial homero ulder joint Carmel Tijerina, FARM MANAGEMENT SUPERVISOR 04/06/2020 Z47.1 Aftercare following joint replac ement surgery Carmel Tijerina, FARM MANAGEMENT SUPERVISOR 04/06/2020 Z96.611 Presence of right artificial homero ulder joint Carmel Tijerina, FARM MANAGEMENT SUPERVISOR 04/02/2020 Z47.1 Aftercare following joint replac ement surgery Carmel Tijerina, FARM MANAGEMENT SUPERVISOR 04/02/2020 Z96.611 Presence of right artificial homero ulder joint Carmel Tijerina, FARM MANAGEMENT SUPERVISOR 03/31/2020 Z47.1 Aftercare following joint replac ement surgery Imer Irby, PT, DPT 03/31/2020 Z96.611 Presence of right artificial homero ulder joint Imer Irby, PT, DPT 03/26/2020 Z47.1 Aftercare following joint replac ement surgery Carmel Tijerina, FARM MANAGEMENT SUPERVISOR 03/26/2020 Z96.611 Presence of right artificial homero ulder joint Carmel Tijerina, FARM MANAGEMENT SUPERVISOR 03/23/2020 Z47.1 Aftercare following joint replac ement surgery Carmel Tijerina, FARM MANAGEMENT SUPERVISOR 03/23/2020 Z96.611 Presence of right artificial homero ulder joint Carmel Tijerina, FARM MANAGEMENT SUPERVISOR 03/16/2020 Z47.1 Aftercare following joint replac ement surgery Carmel Tijerina, FARM MANAGEMENT SUPERVISOR 03/16/2020 Z96.611 Presence of right artificial homero ulder joint Carmel Tijerina, FARM MANAGEMENT SUPERVISOR 03/13/2020 Z47.1 Aftercare following joint replac ement surgery Carmel Tijerina, FARM MANAGEMENT SUPERVISOR 03/13/2020 Z96.611 Presence of right artificial homero ulder joint Carmel Tijerina, FARM MANAGEMENT SUPERVISOR 03/11/2020 Z47.1 Aftercare following joint replac ement surgery Imer Irby, PT, DPT 03/11/2020 Z96.611 Presence of right artificial homero ulder joint Imer Irby, PT, DPT 03/05/2020 Z47.1 Aftercare following joint replac ement surgery Carmel Tijerina, FARM MANAGEMENT SUPERVISOR 03/05/2020 Z96.611 Presence of right artificial homero ulder joint Carmel Tijerina, FARM MANAGEMENT SUPERVISOR 03/02/2020 Z47.1 Aftercare following joint replac ement surgery Imer Irby, PT, DPT 03/02/2020 Z96.611 Presence of right artificial homero ulder joint Imer Irby, PT, DPT 02/28/2020 Z47.1 Aftercare following joint replac ement surgery Chevy Mcadams MD 02/28/2020 Z47.1 Aftercare following joint replac ement surgery Carmel Tijerina, FARM MANAGEMENT SUPERVISOR 02/28/2020 Z96.611 Presence of right artificial homero ulder joint Chevy Mcadams MD 02/28/2020 Z96.611 Presence of right artificial homero ulder joint Carmel Tijerina, FARM MANAGEMENT SUPERVISOR 02/26/2020 Z47.1 Aftercare following joint replac ement surgery Imer Irby, PT, DPT 02/26/2020 Z96.611 Presence of right artificial homero ulder joint Imer Irby, PT, DPT 02/21/2020 Z47.1 Aftercare following joint replac ement surgery Chichi Scee P.T.A. 02/21/2020 Z96.611 Presence of right artificial homero ulder joint Chichi Scee P.T.A. 02/19/2020 Z47.1 Aftercare following joint replac ement surgery Chichi Scee P.T.A. 02/19/2020 Z96.611 Presence of right artificial homero ulder joint Chichi Scee P.T.A. 02/14/2020 Z47.1 Aftercare following joint replac ement surgery Carmel Tijerina, FARM MANAGEMENT SUPERVISOR 02/14/2020 Z96.611 Presence of right artificial homero ulder joint Carmel Tijerina, FARM MANAGEMENT SUPERVISOR 02/12/2020 Z47.1 Aftercare following joint replac ement surgery Chichi Scee P.T.A. 02/12/2020 Z96.611 Presence of right artificial homero ulder joint Chichi Scee P.T.A. 02/07/2020 Z47.1 Aftercare following joint replac ement surgery Imer Irby, PT, DPT 02/07/2020 Z96.611 Presence of right artificial homero ulder joint Imer Irby, PT, DPT 01/31/2020 Z47.1 Aftercare following joint replac ement surgery Gena Campos PA-C 01/31/2020 Z96.611 Presence of right artificial homero ulder joint Gena Campos PA-C 01/15/2020 Z01.818 Encounter for other preprocedura l cora Mcadams PA-C 01/15/2020 M19.011 Primary osteoarthritis, right sh oulder Sandra Mcadams PA-C Plan of Treatment No Information Available Functional Status Description No Information Available Mental Status Description No Information Available Referrals Refer to Dr Reason for Referral Status Appt Date Carmel Tijerina, PHILLIP PT BASED ON MED [facility]..LD Created [address] [place] [address] [phone] Gena Campos PA-C PT BASED ON MED. [facility] TO PT DEPT. NT C reated [address] [place], [place] [id number] [place] [address] [phone] Vu Pimentel MD SURGERY RIGHT SHOULDER [id number] , NO AUTH REQD BASED ON MED [facility], SENT TO SURGERY SCHED..LD Created [address] [place] [address], [place] [address] [phone]
--- OUTSIDE RECORDS SUMMARY | 2020-08-07 09:07 | CCD | Continuity of Care Document ---
Author Author Cecilio MCADAMS MD Organization Unknown Address [address] [place] [address], [address] [place] [address] Phone [phone] Care Team Providers Care Precision Grinder External Name Role Phone Nick Bloom AUTM [phone] Vu Pimentel MD AUTM [phone] Problems Active Problems Provider Date Type 2 [...] Available Procedures Date Code Description Status 06/16/2020 10303 X-Ray Shoulder Complete Complete d 04/17/2020 05004 Therapeutic Procedure, Each 15 M inutes Completed 04/13/2020 72443 Therapeutic Procedure, Each 15 M inutes Completed 04/13/2020 04665 Therapeutic Procedure, Each 15 M inutes Completed 04/06/2020 93577 Therapeutic Procedure, Each 15 M inutes Completed 04/06/2020 15767 Therapeutic Procedure, Each 15 M inutes Completed 04/02/2020 64804 Therapeutic Procedure, Each 15 M inutes Completed 04/02/2020 97368 Therapeutic Procedure, Each 15 M inutes Completed 03/31/2020 37469 Therapeutic Procedure, Each 15 M inutes Completed 03/31/2020 00737 Therapeutic Procedure, Each 15 M inutes Completed 03/26/2020 27949 Therapeutic Procedure, Each 15 M inutes Completed 03/26/2020 76319 Therapeutic Procedure, Each 15 M inutes Completed 03/23/2020 06282 Therapeutic Procedure, Each 15 M inutes Completed 03/23/2020 53174 Therapeutic Procedure, Each 15 M inutes Completed 03/16/2020 95012 Therapeutic Procedure, Each 15 M inutes Completed 03/16/2020 38242 Therapeutic Procedure, Each 15 M inutes Completed 03/13/2020 36916 Therapeutic Procedure, Each 15 M inutes Completed 03/13/2020 39989 Therapeutic Procedure, Each 15 M inutes Completed 03/11/2020 69441 Therapeutic Procedure, Each 15 M inutes Completed 03/11/2020 41592 Therapeutic Procedure, Each 15 M inutes Completed 03/05/2020 33099 Therapeutic Procedure, Each 15 M inutes Completed 03/05/2020 97367 Therapeutic Procedure, Each 15 M inutes Completed 03/02/2020 70157 Therapeutic Procedure, Each 15 M inutes Completed 03/02/2020 00239 Therapeutic Procedure, Each 15 M inutes Completed 02/28/2020 34009 Therapeutic Procedure, Each 15 M inutes Completed 02/28/2020 24015 Therapeutic Procedure, Each 15 M inutes Completed 02/28/2020 61015 X-Ray Shoulder Complete Complete d 02/26/2020 28676 Therapeutic Procedure, Each 15 M inutes Completed 02/26/2020 80933 Therapeutic Procedure, Each 15 M inutes Completed 02/21/2020 45338 Therapeutic Procedure, Each 15 M inutes Completed 02/21/2020 86730 Therapeutic Procedure, Each 15 M inutes Completed 02/19/2020 40255 Therapeutic Procedure, Each 15 M inutes Completed 02/19/2020 10300 Therapeutic Procedure, Each 15 M inutes Completed 02/14/2020 33233 Therapeutic Procedure, Each 15 M inutes Completed 02/14/2020 16657 Therapeutic Procedure, Each 15 M inutes Completed 02/12/2020 79438 Therapeutic Procedure, Each 15 M inutes Completed 02/12/2020 41130 Therapeutic Procedure, Each 15 M inutes Completed 02/07/2020 64279 Physical Therapy Eval - Low Comp lexity Completed Medical Devices Description No Information Available Encounters Type Date Location Provider Dx Diagnosis Office Visit 01/31/2020 8[facility]-C Z4 7.1 Aftercare following joint replacement surgery Z96.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 Office Visit 01/15/2020 9:[place]a [place] PA-C Z01.818 Encounter for other preprocedural examination M19.011 Primary osteoarthritis, righ t shoulder Assessments Date Code Description Provider 04/17/2020 Z47.1 Aftercare following joint replac ement surgery Imer Irby, PT, DPT 04/17/2020 Z96.611 Presence of right artificial homero ulder joint Imer Irby, PT, DPT 04/13/2020 Z47.1 Aftercare following joint replac ement surgery Carmel Tijerina, TILE PRESSER 04/13/2020 Z96.611 Presence of right artificial homero ulder joint Carmel Tijerina, TILE PRESSER 04/06/2020 Z47.1 Aftercare following joint replac ement surgery Carmel Tijerina, TILE PRESSER 04/06/2020 Z96.611 Presence of right artificial homero ulder joint Carmel Tijerina, TILE PRESSER 04/02/2020 Z47.1 Aftercare following joint replac ement surgery Carmel Tijerina, TILE PRESSER 04/02/2020 Z96.611 Presence of right artificial homero ulder joint Carmel Tijerina, TILE PRESSER 03/31/2020 Z47.1 Aftercare following joint replac ement surgery Imer Irby, PT, DPT 03/31/2020 Z96.611 Presence of right artificial homero ulder joint Imer Irby, PT, DPT 03/26/2020 Z47.1 Aftercare following joint replac ement surgery Carmel Tijerina, TILE PRESSER 03/26/2020 Z96.611 Presence of right artificial homero ulder joint Carmel Tijerina, TILE PRESSER 03/23/2020 Z47.1 Aftercare following joint replac ement surgery Carmel Tijerina, TILE PRESSER 03/23/2020 Z96.611 Presence of right artificial homero ulder joint Carmel Tijerina, TILE PRESSER 03/16/2020 Z47.1 Aftercare following joint replac ement surgery Carmel Tijerina, TILE PRESSER 03/16/2020 Z96.611 Presence of right artificial homero ulder joint Carmel Tijerina, TILE PRESSER 03/13/2020 Z47.1 Aftercare following joint replac ement surgery Carmel Tijerina, TILE PRESSER 03/13/2020 Z96.611 Presence of right artificial homero ulder joint Carmel Tijerina, TILE PRESSER 03/11/2020 Z47.1 Aftercare following joint replac ement surgery Imer Irby, PT, DPT 03/11/2020 Z96.611 Presence of right artificial homero ulder joint Imer Irby, PT, DPT 03/05/2020 Z47.1 Aftercare following joint replac ement surgery Carmel Tijerina, TILE PRESSER 03/05/2020 Z96.611 Presence of right artificial homero ulder joint Carmel Tijerina, TILE PRESSER 03/02/2020 Z47.1 Aftercare following joint replac ement surgery Imer Irby, PT, DPT 03/02/2020 Z96.611 Presence of right artificial homero ulder joint Imer Irby, PT, DPT 02/28/2020 Z47.1 Aftercare following joint replac ement surgery Chevy Mcadams MD 02/28/2020 Z47.1 Aftercare following joint replac ement surgery Carmel Tijerina, TILE PRESSER 02/28/2020 Z96.611 Presence of right artificial homero ulder joint Chevy Mcadams MD 02/28/2020 Z96.611 Presence of right artificial homero ulder joint Carmel Tijerina, TILE PRESSER 02/26/2020 Z47.1 Aftercare following joint replac ement [...] following joint replac ement surgery Carmel Tijerina, TILE PRESSER 02/14/2020 Z96.611 Presence of right artificial homero ulder joint Carmel Tijerina, TILE PRESSER 02/12/2020 Z47.1 Aftercare following joint replac ement [...] of right artificial homero ulder joint Gena Campos, BENJIE 01/15/2020 Z01.818 Encounter for other preprocedura l cora Mcadams, BENJIE 01/15/2020 M19.011 Primary osteoarthritis, right sh joellelder Sandra Mcadams PA-C Plan of Treatment No Information Available Functional Status Description No Information Available Mental Status Description No Information Available Referrals Refer to Dr Reason for Referral Status Appt Date Carmel Tijerina PTA PT BASED ON MED [facility]..LD Created [address] [facility] [address] [place] [address] [phone] Gena Campos PA-C PT BASED ON MED. [facility] TO PT DEPT. NT C reated [address] [place], [place] [id number] [place] [address] [phone] Vu Pimentel MD SURGERY RIGHT SHOULDER [id number] , NO AUTH REQD BASED ON MED [facility], SENT TO SURGERY SCHED..LD Created [facility], [address] [place] [address] [phone]
--- NOTE | 2020-08-07 09:44 | REP ---
INDICATION: laceration after fall. COMPARISON: None. TECHNIQUE: Four views. FINDINGS: Four views of the right hand demonstrate a soft tissue deficit and some irregular swelling at the ulnar aspect of the MCP joint of the 5th digit. No opaque foreign body is seen. No fracture or subluxation is noted.. . . IMPRESSION: No fracture seen. Soft tissue deficit representing the laceration at the ulnar aspect of the 5th MCP joint.. <Electronically signed by Good Liu > 08/07/20 0963
--- OUTSIDE RECORDS SUMMARY | 2020-08-07 09:54 | CCD ---
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 Name Role Phone Cory Pena MD Unavailable [...] Cory Reese MD Unavailable Unavailable Fish, Susie Flores MPAS, PA-C Unavailable Unavailabl e Fish, Susie Flores MPAS, PA-C Unavailable Unavailabl e Fish, Susie LANDRY, PA-C Unavailable Unavailabl e Fish, Susie Flores MPAS, PA-C Unavailable Unavailabl e Fish, Susie Flores MPAS, PA-C Unavailable Unavailabl e Fish, Susie Flores MPAS, PA-C Unavailable Unavailabl e Fish, Susie LANDRY, PA-C Unavailable Unavailabl e Fish, Susie LANDRY, PA-C Unavailable Unavailabl e Fish, [facility], PA-C Unavailable Unavailabl e Fish, [facility], PA-C Unavailable Unavailabl e Fish, [facility], PA-C Unavailable Unavailabl e Fish, [facility], PA-C Unavailable Unavailabl e Fish, [facility], PA-C Unavailable Unavailabl e Fish, [facility], PA-C Unavailable Unavailabl e Fish, [facility], PA-C Unavailable Unavailabl e Fish, [facility], PA-C Unavailable Unavailabl e Fish, [facility], PA-C Unavailable Unavailabl e Fish, [facility], PA-C Unavailable Unavailabl e Fish, [facility], PA-C Unavailable Unavailabl e Fish, [facility], PA-C Unavailable Unavailabl e Fish, [facility], PA-C Unavailable Unavailabl e Fish, [facility], PA-C Unavailable Unavailabl e Fish, [facility], PA-C Unavailable Unavailabl e Fish, [facility], PA-C Unavailable Unavailabl e Fish, [facility], PA-C Unavailable Unavailabl e Fish, [facility], PA-C Unavailable Unavailabl e Fish, [facility], PA-C Unavailable Unavailabl e Fish, [facility], PA-C Unavailable Unavailabl e Fish, [facility], PA-C Unavailable Unavailabl e Fish, [facility], PA-C Unavailable Unavailabl e Fish, [facility], PA-C Unavailable Unavailabl e Fish, [facility], PA-C Unavailable Unavailabl e Fish, [facility], PA-C Unavailable Unavailabl e Mollison, Cory Reese MD Unavailable Unavailable Mollison, [...] Mollison, Cory Reese MD Unavailable Unavailable Mollison, W Hugh MD Unavailable Unavailable Cory Pena MD Unavailable [...] is protected by Article 27-F of the [facility] Public Health law. If you continue you may have access to information: Regarding HIV / AIDS; Provided by facilities licensed or operated by the [facility] Office of Mental Health; or Provided by the [facility] Office for People With Developmental Disabilities. If such information is present, then the following [facility] mandated warning applies: This information has been [...] law may result in a fine or intermediate sentence or both. A general authorization for the release of medical or other information is NOT sufficient authorization for further disc losure. Family History Family Member Name Family Member Gender Family Member Status Date o f Status Description Data Source(s) Unknown Male Problem [facility] ([facility]) Encounters Encounter Providers Location Date Indications Data Source(s ) Office Visit Attender: Gena IBANEZ Physical Therapy 08:30:00 AM EDT [facility] ([facility]) Office Visit Attender: Sandra LANDRY PA-C Physical Therapy 01/15/2020 09:00:00 AM EDT [facility] ([facility]) Outpatient Attender: Hugh Anthony/Pallavi/Gatito/Damari indl 10/30/2019 08:30:00 AM EDT [facility] ([facility] Outpatient Referrer: Hugh [...] Anthony/Pallavi/Gatito/Re indl 08/27/2019 07:50:00 AM EST [facility] ([facility]) Outpatient Referrer: Hugh [...] Anthony/Pallavi/Gatito/Re indl 08/19/2019 07:00:00 AM EST [facility] ([facility]) Outpatient Attender: Hugh Anthony/Pallavi/Gatito/Re indl 07/29/2019 07:00:00 AM EST [facility] ([facility]) Outpatient Attender: TAVARES IBANEZ Physical Therapy 07/04 09:15:00 AM EST [facility] ([facility]) Outpatient Attender: TAVARES IBANEZ Physical Therapy 06/02 07:30:00 AM EST [facility] ([facility]) Medications Medication Brand Name Start Date Product Form Dose Route Admi nistrative Instructions Pharmacy Instructions Status Indications Reaction Description Data Source(s) Acetaminophen 325 MG / Oxycodone Hydrochloride 5 MG Or al Tablet Oxycodone-Acetaminophen 01/17/2020 12:00:00 AM EDT ORAL active [facility] ([facility], ) Acetaminophen 325 MG / Oxycodone Hydrochloride 5 MG Or al Tablet Oxycodone-Acetaminophen 12/25/2019 12:00:00 AM EDT ORAL completed [facility] ([facility], ) Mupirocin 0.02 MG/MG Topical Ointment [Bactroban] Bactroban 12/25/2019 12:00:00 AM EDT active [facility] ([facility]) chlorhexidine gluconate 40 MG/ML Medicated Liquid Soap [Hibi clens] Hibiclens 12/25/2019 12:00:00 AM EDT TOPICAL active [facility] ([facility]) tramadol hydrochloride 50 MG Oral Tablet Tramadol HCL 09/17/2019 12:00:00 AM EDT completed [facility] ([facility]) tramadol hydrochloride 50 MG Oral Tablet Tramadol HCL 09/17/2019 12:00:00 AM EDT active [facility] Lidocaine 40 MG/ML Topical Cream Lidocaine 08/29/2019 12:00:00 AM EST active [facility] ([facility]) Insurance Providers Payer name Policy type / Coverage type Policy ID Covered libertarian ID Covered libertarian's relationship to ray Policy Ray Plan Information WELLCARE [id number] SP [id number] TRAVELERS NO FAULT [id number] SP [id number] MEDICARE COMPLETE [id number] SP [id number] TRAVELERS NO FAULT O [id number] S [id number] TRAVELERS NO FAULT O [id number] S [id number] WELLCARE [id number] SP [id number] [facility] Medigap Part B [id number] Self [id number] [place] Medigap Part B [id number] Self [id number] [employer] (Medicare) Medigap Part B [id number] Self [id number] Wellcare Commercial [id number] Self [id number] Travelers ([place]) Workers Compensation [id number] Self [id number] TRAVELERS NO FAULT [id number] SP [id number] LIBERTY MUTUAL NO FAULT [id number] SP [id number] AETNA MEDICARE [id number] SP [id number] ISMA AETNA MEDICARE [id number] SP [id number] ISMA AETNA MEDICARE [id number] SP [id number] ISMA MEDICARE COMPLETE [id number] SP [id number] MEDICARE COMPLETE [id number] SP [id number] MEDICARE COMPLETE [id number] SP [id number] TODAYS OPTIONS [id number] SP [id number] EXCELLUS BCBS P [id number] S [id number] MEDICARE -O/P [id number] 18 [id number] MEDICARE BLUE PPO 306 [id number] SP [id number] MEDICARE COMPLETE [id number] SP [id number] BLUE CROSS BLUE SHIELD -O/P [id number] 18 [id number] Problems, Conditions, and Diagnoses Code Display Name Description Problem Type Effective Dates Data Source(s) 33605610 Essential hypertension Essential hypertension Problem 07/29/2019 12:00:00 AM EST [facility] ([facility], ) Surgeries/Procedures Procedure Description Date Indications Data Source(s) RADEX SHOULDER COMPLETE MINIMUM 2 VIEWS 06/16/2020 12: 00:00 AM EST [facility] ([facility]) THERAPEUTIC PX 1/> AREAS EACH 15 MIN EXERCISES 12:00:00 AM EDT [facility] ([facility]) THERAPEUTIC PX 1/> AREAS EACH 15 MIN EXERCISES 12:00:00 AM EDT [facility] ([facility]) THERAPEUTIC PX 1/> AREAS EACH 15 MIN EXERCISES 12:00:00 AM EDT [facility] ([facility]) THERAPEUTIC PX 1/> AREAS EACH 15 MIN EXERCISES 12:00:00 AM EDT [facility] ([facility]) THERAPEUTIC PX 1/> AREAS EACH 15 MIN EXERCISES 12:00:00 AM EDT [facility] ([facility]) THERAPEUTIC PX 1/> AREAS EACH 15 MIN EXERCISES 12:00:00 AM EDT [facility] ([facility]) THERAPEUTIC PX 1/> AREAS EACH 15 MIN EXERCISES 12:00:00 AM EDT [facility] ([facility] THERAPEUTIC PX 1/> AREAS EACH 15 MIN EXERCISES 12:00:00 AM EDT [facility] ([facility]) THERAPEUTIC PX 1/> AREAS EACH 15 MIN EXERCISES 12:00:00 AM EDT [facility] ([facility] ) THERAPEUTIC PX 1/> AREAS EACH 15 MIN EXERCISES 12:00:00 AM EDT [facility] ([facility] ) THERAPEUTIC PX 1/> AREAS EACH 15 MIN EXERCISES 12:00:00 AM EDT [facility] ([facility] ) THERAPEUTIC PX 1/> AREAS EACH 15 MIN EXERCISES 12:00:00 AM EDT [facility] ([facility] ) THERAPEUTIC PX 1/> AREAS EACH 15 MIN EXERCISES 12:00:00 AM EDT [facility] ([facility] ) THERAPEUTIC PX 1/> AREAS EACH 15 MIN EXERCISES 12:00:00 AM EDT [facility] ([facility] ) THERAPEUTIC PX 1/> AREAS EACH 15 MIN EXERCISES 12:00:00 AM EDT [facility] ([facility] ) THERAPEUTIC PX 1/> AREAS EACH 15 MIN EXERCISES 12:00:00 AM EDT [facility] ([facility]) THERAPEUTIC PX 1/> AREAS EACH 15 MIN EXERCISES 12:00:00 AM EDT [facility] ([facility] ) THERAPEUTIC PX 1/> AREAS EACH 15 MIN EXERCISES 12:00:00 AM EDT [facility] ([facility]) THERAPEUTIC PX 1/> AREAS EACH 15 MIN EXERCISES 12:00:00 AM EDT [facility] ([facility]) THERAPEUTIC PX 1/> AREAS EACH 15 MIN EXERCISES 12:00:00 AM EDT [facility] ([facility]) THERAPEUTIC PX 1/> AREAS EACH 15 MIN EXERCISES 12:00:00 AM EDT [facility] ([facility]) THERAPEUTIC PX 1/> AREAS EACH 15 MIN EXERCISES 12:00:00 AM EDT [facility] ([facility] ) THERAPEUTIC PX 1/> AREAS EACH 15 MIN EXERCISES 12:00:00 AM EDT [facility] ([facility] ) RADEX SHOULDER COMPLETE MINIMUM 2 VIEWS 02/28/2020 12: 00:00 AM EDT [facility] ([facility]) THERAPEUTIC PX 1/> AREAS EACH 15 MIN EXERCISES 12:00:00 AM EDT [facility] ([facility]) THERAPEUTIC PX 1/> AREAS EACH 15 MIN EXERCISES 12:00:00 AM EDT [facility] ([facility]) X-Ray Shoulder Complete 02/28/2020 12:00:00 AM EDT [facility] ([facility], ) THERAPEUTIC PX 1/> AREAS EACH 15 MIN EXERCISES 12:00:00 AM EDT [facility] ([facility] ) THERAPEUTIC PX 1/> AREAS EACH 15 MIN EXERCISES 12:00:00 AM EDT [facility] ([facility]) THERAPEUTIC PX 1/> AREAS EACH 15 MIN EXERCISES 12:00:00 AM EDT [facility] ([facility] ) THERAPEUTIC PX 1/> AREAS EACH 15 MIN EXERCISES 12:00:00 AM EDT [facility] ([facility] ) THERAPEUTIC PX 1/> AREAS EACH 15 MIN EXERCISES 12:00:00 AM EDT [facility] ([facility] ) THERAPEUTIC PX 1/> AREAS EACH 15 MIN EXERCISES 12:00:00 AM EDT [facility] ([facility] ) THERAPEUTIC PX 1/> AREAS EACH 15 MIN EXERCISES 12:00:00 AM EDT [facility] ([facility] ) THERAPEUTIC PX 1/> AREAS EACH 15 MIN EXERCISES 12:00:00 AM EDT [facility] ([facility] ) THERAPEUTIC PX 1/> AREAS EACH 15 MIN EXERCISES 12:00:00 AM EDT [facility] ([facility] ) THERAPEUTIC PX 1/> AREAS EACH 15 MIN EXERCISES 12:00:00 AM EDT [facility] ([facility]) Physical Therapy Eval - Low Complexity 02/07/2020 12:0 0:00 AM EDT [facility] ([facility]) ARTHROPLASTY GLENOHUMERAL JOINT TOTAL SHOULDER 020 12:00:00 AM EDT [facility] ([facility]) Inject/Drain Arthrocentesis Major Joint/Bursa/Ganglion Cyst 11/13/2019 12:00:00 AM EDT [facility] ([facility]) Inject/Drain Arthrocentesis Major Joint/Bursa/Ganglion Cyst 10/14/2019 12:00:00 AM EDT [facility] ([facility]) Inject/Drain Arthrocentesis Major Joint/Bursa/Ganglion Cyst 07/29/2019 12:00:00 AM EST [facility] ([facility]) Injec Anesthetic Agent/Steroid Trans Epidural Cerv/Thor Sing le 07/08/2019 12:00:00 AM EST [facility] Epidurography Radiological Supervision & Interpretation 07/08/2019 12:00:00 AM EST [facility] ([facility]) Moderate Sedation Services; Same Phys Intl 15 Mins; PT >= 5 Years 07/08/2019 12:00:00 AM EST [facility] ([facility]) Results ID Date Data Source [id number] 01/12/2020 10:30:00 AM EDT [facility] ([facility]) Name Value Range Interpretation Code Description Data Basilia rce(s) Supporting Document(s) Laboratory test finding (navigational concept) Laboratory test result [facility] ([facility]) Testing was performed using the marcie(R) SARS-CoV-2 test. This test was developed and its performance characteristics determined by [facility]. This test has not been FDA cleared [...] result in this assay. Performed at: - [facility] [id number] Mechanical Assembly: Kelly Salcedo MD, Phone: [phone] Not Detected ID Date Data Source [id number] 01/12/2020 10:30:00 AM EDT [facility] Name Value Range Interpretation Code Description Data Basilia rce(s) Supporting Document(s) SARS coronavirus 2 RNA [facility] This lab was ordered by [facility] and reported by [facility]. ID Date Data Source [id number] 12/27/2019 07:20:00 AM EDT [facility] ([facility]) Name Value Range Interpretation Code Description Data Basilia rce(s) Supporting Document(s) Erythrocyte sedimentation rate by Westergren method 41 mm/hr 0-20 Above high normal [facility] ([facility]) ID Date Data Source [id number] 12/27/2019 07:20:00 AM EDT [facility] ([facility]) Name Value Range Interpretation Code Description Data Basilia rce(s) Supporting Document(s) White Blood Count 5.5 10 4.0-10.0 Normal (applies to non-numeri c results) [facility]) Hematocrit 35.2 % 42.0-52.0 Below low normal [facility] ( [facility]) Red Blood Count 3.74 10 4.30-6.10 Below low normal [facility] ([facility]) Hemoglobin 11.5 g/dL 13.5-17.5 Below low normal [facility] ( [facility]) Mean Corpuscular HGB Conc 32.7 g/dL 32.0-36.5 Normal (applies to non-numeric results) [facility]) Mean Corpuscular Hemoglobin 30.7 pg 27.0-33.0 Norm al (applies to non-numeric results) [facility]) Mean Corpuscular Volume 94.1 fl 80.0-96.0 Normal ( applies to non-numeric results) [facility] ([facility]) Nucleated Red Blood Cell % 0.0 % 0-0 Normal (applies to n on-numeric results) [facility] ([facility]) Red Cell Distribution Width 12.8 % 11.5-14.5 Norm al (applies to non-numeric results) [facility] ([facility]) Platelet Count, Automated 177 10 150-450 Normal (applies to non-numeric results) [facility] ([facility]) ID Date Data Source [id number] 12/27/2019 07:20:00 AM EDT [facility]) Name Value Range Interpretation Code Description Data Basilia rce(s) Supporting Document(s) Glucose, Fasting 104 mg/dL 70-100 Above high normal [facility] ([facility]) Blood Urea Nitrogen 37 mg/dL 7-18 Above high normal [facility] ([facility]) Creatinine For GFR 2.08 mg/dL 0.70-1.30 Above high normal [facility] ([facility]) Glomerular Filtration Rate 33.3 Below low normal [facility] ([facility]) <content>Units are mL/min/1.73 m2</content>
<content></content>
<content>Chronic Kidney Disease Staging per NKF:</content>
<content></content>
<content>Stage I & II GFR >=60 Normal to Mildly Decreased</content>
<content>Stage III GFR 30- 59 Moderately Decreased</content>
<content>Stage IV GFR 15-29 Severely Decreased</content>
<content>Stage V GFR <15 Very Little GFR Left</content>
<content>ESRD GFR <15 on DIRECTOR OF LABOR RELATIONS</content>
<content></content> Potassium Serum 4.2 meq/L 3.5-5.1 Normal (applies to non-numeric results) [facility] ([facility]) Sodium Level 138 meq/L 136-145 Normal (applies to non-numeric res ults) [facility] Chloride Level 107 meq/L 98-107 Normal (applies to non-numeric r esults) [facility] ([facility]) Calcium Level 9.3 mg/dL 8.8-10.2 Normal (applies to non-numeric re sults) [facility] ([facility]) Carbon Dioxide Level 24 meq/L 21-32 Normal (applies to non-num [place] results) [facility] ([facility]) Anion Gap 7 meq/L 8-16 Below low normal [facility] ( [facility]) Alt/SGPT 30 U/L 12-78 Normal (applies to non-numeric resul ts) [facility] ([facility]) Ast/Sgot 31 U/L 7-37 Normal (applies to non-numeric resul ts) [facility] ([facility]) Alkaline Phosphatase 40 U/L 45-117 Below low normal [facility] ([facility]) Total Protein 7.8 GM/DL 6.4-8.2 Normal (applies to non-numeric re sults) [facility] ([facility]) Bilirubin,Total 0.3 mg/dL 0.2-1.0 Normal (applies to non-numeric results) [facility] ([facility]) Albumin/Globulin Ratio 1.1 Normal (applies to non-n umeric results) [facility] ([facility]) Albumin 4.0 GM/DL 3.2-5.2 Normal (applies to non-numeric resul ts) [facility] ([facility]) ID Date Data Source [id number] 12/27/2019 07:20:00 AM EDT [facility] ([facility]) Name Value Range Interpretation Code Description Data Basilia rce(s) Supporting Document(s) Inr 1.08 Normal (applies to non-numeric resul ts) [facility] THERAPUTIC HUMAN INR VALUES INDICATIONS NORMAL RANGES PROPHYLAXIS/TREATMENT OF: VENOUS THROMBOSIS 2.0-3.0 PULMONARY EMBOLISM 2.0-3.0 PREVENTION OF SYSTEMIC EMBOLISM FROM: TISSUE HEART VALVES 2.0-3.0 ACUTE MYOCARDIAL INFARCTION 2.0-3.0 VALVULAR HEART DISEASE 2.0-3.0 ATRIAL FIBRILLATION 2.0-3.0 MECHANICAL VALVES(HIGH RISK) 2.5-3.5 RECURRENT MYOCARDIAL INFARCTION 2.5-3.5 Prothrombin Time 13.7 s 11.8-14.0 Normal (applies to non-numeric results) [facility] ([facility], ) ID Date Data Source [id number] 09/17/2019 11:40:00 AM EDT [facility] ([facility] ) Name Value Range Interpretation Code Description Data Basilia rce(s) Supporting Document(s) Laboratory test finding (navigational concept) Laboratory test result [facility] ([facility], ) ID Date Data Source [id number] 09/06/2019 12:00:00 AM EST [facility] Imaging Hugh Pena MD Patient Name: CRESCENCIO ROQUE[address] [facility] Date of : 1945Suite Date of Exam: 09/06/2019KENRICK Yeboah [id number]#: Fax: [phone] EXAM: CT UPPER RIGHT EXTREMITY WITHOUT CONTRASTPROCEDURE INFORMATION:Exam: CT Right Upper Extremity Without Contrast, ShoulderExam date and time: 09/06/2019 9:07 AM Age: 74 years oldClinical indication: Prior surgery; Surgery date: 6+ months; Surgery type:Shoulder surgery done in 06/2010 at [facility]. ; Patient HX: Rightshoulder is extremely painful. Shoulder freezes on PT and he has to pull itto move it. Unable to move much while here. ; Additional info: Prior mridone on [facility] lately.TECHNIQUE: Imaging protocol: CT of the [...] MD 09/10/2019 5:07 PMEastern Time (US & Geri)PamelaV/jmcTsepidehk you for referring CRESCENCIO ROQUE to our office. Electronically Signed - PAMELA 09/11/19 8:23 Name Value Range Interpretation Code Description Data Basilia rce(s) Supporting Document(s) ID Date Data Source [id number] 08/21/2019 12:00:00 AM EST [facility] Imaging Hugh Pena MD Patient Name: IRON ROQUE [facility] Date of : 1945[address] Date [facility] Ex[facility]: [facility]/2019[facility] [id number] Fax: [phone] EXAM: ARTHROCENTESIS RTSHLDR-ASPIR/INJ STEROID/PAIN MEDSRIGHT SHOULDER INJECTION:The procedure was performed by JOSE New under the directsupervision of Dr. Gduino.The benefits and risks including, but not limited [...] which is a 75% reduction in radiation.AZAR Bird/jmcTjaylen you for referring CRESCENCIO ROQUE to our office. Electronically Signed - LORRI GUDINO MD 08/21/19 13:50 Name Value Range Interpretation Code Description Data Basilia rce(s) Supporting Document(s) ID Date Data Source [id number] 08/21/2019 12:00:00 AM EST [facility] ology Imaging Hugh Pena MD Patient Name: LOPEZ [address] [place] [address] Date of : 1945[address] Date of Exam: 08/21/2019KENRICK Yeboah [id number]#: Fax: [phone] EXAM: ARTHROCENTESIS RTSHLDR-ASPIR/INJ STEROID/PAIN MEDSRIGHT SHOULDER INJECTION:The procedure was performed by Khurram Alvarez [facility] under the directsupervision of Dr. Gudino.The benefits [...] ROQUE to our office. Electronically Signed - LORRI GUDINO MD 08/21/19 13:50 Name Value Range Interpretation Code Description Data Basilia rce(s) Supporting Document(s) ID Date Data Source [id number] 06/24/2019 08:23:00 AM EST [facility] ([facility] Name Value Range Interpretation Code Description Data Basilia rce(s) Supporting Document(s) Laboratory test finding (navigational concept) <pending> [facility] ([facility] ) ID Date Data Source [id number] 06/19/2019 10:03:00 AM EST [facility] ([facility]) Name Value Range Interpretation Code Description Data Basilia rce(s) Supporting Document(s) Glomerular filtration rate/1.73 sq M.pre dicted [Volume Rate/Area] in Serum or Plasma by Creatinine-based formula (MDRD) 42.4 [facility] ID Date Data Source [id number] 06/19/2019 10:03:00 AM EST [facility] ([facility]) Name Value Range Interpretation Code Description Data Basilia rce(s) Supporting Document(s) Creatinine [Mass/volume] in Serum or Plasma 1.69 0.70-1.30 [facility] ID Date Data Source [id number] 06/19/2019 10:03:00 AM EST [facility] ([facility]) Name Value Range Interpretation Code Description Data Basilia rce(s) Supporting Document(s) Urea nitrogen [Mass/volume] in Serum or Plasma 22 7-18 [facility]) ID Date Data Source [id number] 06/19/2019 10:03:00 AM EST [facility] ([facility]) Name Value Range Interpretation Code Description Data Basilia rce(s) Supporting Document(s) aPTT in Blood by Coagulation assay 26.8 25.0-38.4 [facility] ([facility]) ID Date Data Source [id number] 06/19/2019 10:03:00 AM EST [facility] ([facility]) Name Value Range Interpretation Code Description Data Basilia rce(s) Supporting Document(s) INR in Platelet poor plasma by Coagulation assay 1.07 [facility] ID Date Data Source [id number] 06/19/2019 10:03:00 AM EST [facility] ([facility]) Name Value Range Interpretation Code Description Data Basilia rce(s) Supporting Document(s) Prothrombin time (PT) 13.6 11.8-14.0 [facility] ([facility]) ID Date Data Source [id number] 06/19/2019 10:03:00 AM EST [facility] ([facility]) Name Value Range Interpretation Code Description Data Basilia rce(s) Supporting Document(s) Platelets [#/volume] in Blood by Automated count 168 150-450 [facility] ([facility], ) ID Date Data Source [id number] 06/19/2019 10:03:00 AM EST [facility] ([facility]) Name Value Range Interpretation Code Description Data Basilia rce(s) Supporting Document(s) Prothrombin time (PT) 26.8 s 25.0-38.4 MED ENT ([facility]) ID Date Data Source [id number] 06/19/2019 10:03:00 AM EST [facility] ([facility]) Name Value Range Interpretation Code Description Data Basilia rce(s) Supporting Document(s) Prothrombin Time 13.6 s 11.8-14.0 [facility] ([facility]) Inr 1.07 [facility] ([facility]) THERAPUTIC HUMAN INR VALUES INDICATIONS NORMAL RANGES PROPHYLAXIS/TREATMENT OF: VENOUS THROMBOSIS 2.0-3.0 PULMONARY EMBOLISM 2.0-3.0 PREVENTION OF SYSTEMIC EMBOLISM FROM: TISSUE HEART VALVES 2.0-3.0 ACUTE MYOCARDIAL INFARCTION 2.0-3.0 VALVULAR HEART DISEASE 2.0-3.0 ATRIAL FIBRILLATION 2.0-3.0 MECHANICAL VALVES(HIGH RISK) 2.5-3.5 RECURRENT MYOCARDIAL INFARCTION 2.5-3.5 ID Date Data Source [id number] 06/19/2019 10:03:00 AM EST [facility] ([facility]) Name Value Range Interpretation Code Description Data Basilia rce(s) Supporting Document(s) Platelets [#/volume] in Blood by Automated count 168 10 150-450 [facility] ([facility]) ID Date Data Source [id number] 06/19/2019 10:03:00 AM EST [facility] ([facility]) Name Value Range Interpretation Code Description Data Absilia rce(s) Supporting Document(s) Creatinine For GFR 1.69 mg/dL 0.70-1.30 [facility] ([facility]) Glomerular Filtration Rate 42.4 MED [facility] ([facility]) <content>Units are mL/min/1.73 m2</content>
<content></content>
<content>Chronic Kidney Disease Staging per NKF:</content>
<content></content>
<content>Stage I & II GFR >=60 Normal to Mildly Decreased</content>
<content>Stage III GFR 30- 59 Moderately Decreased</content>
<content>Stage IV GFR 15-29 Severely Decreased</content>
<content>Stage V GFR <15 Very Little GFR Left</content>
<content>ESRD GFR <15 on DIRECTOR OF LABOR RELATIONS</content>
<content></content> ID Date Data Source [id number] 06/19/2019 10:03:00 AM EST [facility] Name Value Range Interpretation Code Description Data Basilia rce(s) Supporting Document(s) Urea nitrogen [Mass/volume] in Serum or Plasma 22 mg/dL 7-18 [facility] Procedure Social History Code Duration Value Status Description Data Source(s ) Smoking 06/19/2019 12:00:00 AM EST Patient is a former smoker completed Patient is a former smoker [facility] Vital Signs ID Date Data Source UNK Name Value Range Interpretation Code Description Data Source(s) Body temperature 96.2 [degF] 96.2 [degF] [facility] Respiratory rate 16 /min 16 /min [facility] ( [facility]) Body mass index (BMI) [Ratio] 28.1 kg/m2 28.1 k g/m2 [facility] Body weight 166.12 [lb_av] 166.12 [lb_av] MED[facility] T ([facility]) Body height 64.5 [in_i] 64.5 [in_i] [facility] 5'4.50" Body temperature 97.4 [degF] 97.4 [degF] [facility] Heart rate 72 /min 72 /min [facility] Diastolic blood pressure 74 mm[Hg] 74 mm[Hg] [facility] Systolic blood pressure 128 mm[Hg] 128 mm[Hg] M EDENT ([facility]) Body weight 79.380 kg 79.380 kg [facility] [place] body weight 125 [lb_av] 125 [lb_av] MED[facility] T ([facility]) Body mass index (BMI) [Ratio] 29.1 kg/m2 29.1 k g/m2 [facility] ([facility]) Body weight 175.00 [lb_av] 175.00 [lb_av] [facility] T ([facility]) Body height 65 [in_i] 65 [in_i] [facility] ([facility]) 5'5" Body weight 79.701 kg 79.701 kg [facility] ([facility]) Body mass index (BMI) [Ratio] 28.0 kg/m2 28.0 k g/m2 [facility] ([facility]) Body weight 175.69 [lb_av] 175.69 [lb_av] [facility] T ([facility]) Body temperature 97.6 [degF] 97.6 [degF] [facility] ([facility]) Body mass index (BMI) [Ratio] 28.2 kg/m2 28.2 k g/m2 [facility] ([facility]) Body weight 175.00 [lb_av] 175.00 [lb_av] [facility] T ([facility]) Body height 66 [in_i] 66 [in_i] [facility] ([facility]) 5'6"
[2020-08-07] MEDS ORDERED: BOOSTRIX/ADACEL VACCINE (DIPHTH/PERTUSS/ACELL/TETANUS) 0.5ML SYR IM ONE (10:30)
[2020-08-07] MEDS ORDERED: LIDOCAINE 2% MDV 20ML VIAL SC ONE (10:30)
--- NOTE | 2020-08-07 10:42 | REP ---
INDICATION: fall, recent shoulder replacement. COMPARISON: Comparison right shoulder radiographs are from August 29, 2019.. TECHNIQUE: Three views. FINDINGS: A right shoulder arthroplasty is seen in good position. The prosthetic joint is normally aligned. 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 No fracture or other acute bony abnormality seen. IMPRESSION: No fracture noted. Status post right shoulder arthroplasty. AC joint osteoarthritis. <Electronically signed by Good Liu > 08/07/20 1038
[2020-08-07] MEDS ORDERED: CEPH500T PO (11:32)
[2020-08-07 11:54] VITALS: BP 113/72
== END 2020-08-07 12:19 | disposition home or self-care (01) ==
LOC: M ED 08:53
DX: S61.411A Laceration without foreign body of right hand, initial encounter (principal); W19.XXXA Unspecified fall, initial encounter; Y92.099 Unspecified place in other non-institutional residence as the place of occurrence of the external cause; Y93.9 Activity, unspecified; Y99.9 Unspecified external cause status; M19.011 Primary osteoarthritis, right shoulder; Z96.611 Presence of right artificial shoulder joint; Z79.82 Long term (current) use of aspirin; Z79.84 Long term (current) use of oral hypoglycemic drugs; Z79.899 Other long term (current) drug therapy; Z91.89 Other specified personal risk factors, not elsewhere classified

== ENCOUNTER → 2021-09-17 | Outpatient (REF) | payer MEDICARE ==
[~2021-09-17] MED LIST changes: +CEPH500T PO; +TIZA10TA PO; -TIZA4TAB4 PO
[2021-09-17 17:57] LABS: CREATININE,RANDOM URINE 84.3 MG/DL; TOTAL PROTEIN,RANDOM URINE 22.6 MG/DL (0.0-12.0)
[2021-09-17 18:29] LABS: FERRITIN 62 NG/ML (26-388); IRON (FE) 74 UG/DL (65-175); PERCENT SATURATION 16.7 % (19.7-50.0); TOTAL IRON BINDING CAPACITY 444 UG/DL (250-450); TOTAL PROTEIN 7.6 GM/DL (6.4-8.2)
[2021-09-20 10:05] LABS: ALBUMIN 4.38 GM/DL (3.29-5.55); ALBUMIN % 57.6 % (55.8-66.1); ALPHA-1-GLOBULINS 0.46 GM/DL (0.17-0.41)
[2021-09-20 10:06] LABS: ALPHA-1-GLOBULIN % 6.1 % (2.9-4.9); ALPHA-2-GLOBULINS % 11.9 % (7.1-11.8); BETA-1-GLOBULINS 0.36 GM/DL (0.28-0.60); BETA-1-GLOBULINS % 4.8 % (4.7-7.2); BETA-2-GLOBULINS 0.85 GM/DL (0.19-0.55); BETA-2-GLOBULINS % 11.2 % (3.2-6.5); GAMMA GLOBULIN % 8.4 % (11.1-18.8); GAMMA GLOBULINS 0.64 GM/DL (0.65-1.58)
== END ==
LOC: M LAB REF 16:45
PROVIDERS: ATTEND Internal Medicine Nephrology
DX: E61.1 Iron deficiency (principal); D63.1 Anemia in chronic kidney disease; N18.31 Chronic kidney disease, stage 3a

== ENCOUNTER 2021-10-06 07:54 | Outpatient (CLI) | payer MEDICARE ==
[~2021-10-06] VITALS: Ht 165.1 cm; Wt 76.6 kg
[~2021-10-06 07:54] MED LIST changes: +ALBUTEROL SULFATE 2.5 MG/0.5 ML INH NEB SOLN INH PRN; +EPINEPHrine INJ 1 MG/ML 1ML AMP IM PRN; +diphenhydrAMINE 50MG/ML VIAL (J1200) IV PRN; +methylPREDNISolone 125MG 2ML VIAL IV PRN
[2021-10-06] MEDS ORDERED: NS 1,000 ML IV SCH (08:00)
[2021-10-06] MEDS ORDERED: FERRIC CARBOXYMALTOSE INJ 750 MG, VIAL MATE ADAPTER 1 EACH in NS 250 ML IV ONE (08:00)
[2021-10-06 08:15] VITALS: BP 141/90
[2021-10-06 09:38] VITALS: BP 142/81
== END 2021-10-06 09:40 | disposition home or self-care (01) ==
LOC: M INFU 07:54
PROVIDERS: ATTEND Internal Medicine Nephrology
DX: E61.1 Iron deficiency (principal)
CPT/HCPCS: 96365; J1439

== ENCOUNTER → 2022-07-05 | Outpatient (CLI) | payer MEDICARE ==
[~2022-07-05] MED LIST changes: -ALBUTEROL SULFATE 2.5 MG/0.5 ML INH NEB SOLN INH PRN; -EPINEPHrine INJ 1 MG/ML 1ML AMP IM PRN; +KRIL1CAP PO; -KRIL1CAP7 PO; -diphenhydrAMINE 50MG/ML VIAL (J1200) IV PRN; -methylPREDNISolone 125MG 2ML VIAL IV PRN
[2022-07-05 08:47] LABS: HEMATOCRIT 36.6 % (42.0-52.0); HEMOGLOBIN 11.5 g/dl (13.5-17.5); MEAN CORPUSCULAR HEMOGLOBIN 30.6 pg (27.0-33.0); MEAN CORPUSCULAR HGB CONC 31.4 g/dl (32.0-36.5); MEAN CORPUSCULAR VOLUME 97.3 fl (80.0-96.0); PLATELET COUNT, AUTOMATED 161 10^3/uL (150-450); RED BLOOD COUNT 3.76 10^6/uL (4.30-6.10); WHITE BLOOD COUNT 5.9 10^3/uL (4.0-10.0)
[2022-07-05 09:22] LABS: ALBUMIN 3.8 G/DL (3.2-5.2); CALCIUM LEVEL 9.2 MG/DL (8.3-10.6); CHOLESTEROL RISK RATIO 3.53 (<5); CREATININE FOR GFR 1.99 MG/DL (0.70-1.30); GLOMERULAR FILTRATION RATE 34.9 (>42); HDL CHOLESTEROL 32.8 MG/DL (>40); LDL CHOLESTEROL 48.6 MG/DL (<100); PHOSPHORUS LEVEL 3.1 MG/DL (2.4-5.1); POTASSIUM SERUM 4.9 MMOL/L (3.5-5.1)
[2022-07-05 09:23] LABS: HEMOGLOBIN A1c 6.3 % (4.0-6.0)
[2022-07-05 09:24] LABS: FERRITIN 378.9 NG/ML (10.5-307.3)
[2022-07-06 23:06] LABS: PSA TOTAL 0.2 ng/mL (0.0-4.0)
== END ==
LOC: M LAB 08:21
PROVIDERS: ATTEND Physician Assistant
DX: E78.5 Hyperlipidemia, unspecified (principal); I10 Essential (primary) hypertension; D50.9 Iron deficiency anemia, unspecified; Z12.5 Encounter for screening for malignant neoplasm of prostate; E11.9 Type 2 diabetes mellitus without complications

== ENCOUNTER → 2022-08-03 | Outpatient (CLI) | payer MEDICARE ==
[~2022-08-03] MED LIST changes: +BARIUM SULFATE 700 MG TABLET (E-Z-DISK) As Ordered ONE; +E-Z-PAQUE 96% w/w SUSP 176GM BTL As Ordered ONE; +VARIBAR NECTAR 40% w/v 240ML SUSP BTL As Ordered ONE; +VARIBAR PUDDING 40% w/v 230ML TUBE As Ordered ONE
== END ==
LOC: M RAD 10:52
PROVIDERS: ATTEND Internal Medicine Gastroenterology
DX: R13.12 Dysphagia, oropharyngeal phase (principal)

== ENCOUNTER 2025-05-29 17:19 | Emergency (ER) | payer MEDICARE, OTHER ==
[~2025-05-29] VITALS: Ht 167.6 cm; Wt 79.3 kg
[~2025-05-29 17:19] MED LIST changes: -BARIUM SULFATE 700 MG TABLET (E-Z-DISK) As Ordered ONE; -E-Z-PAQUE 96% w/w SUSP 176GM BTL As Ordered ONE; -EZET10TA21 PO; +EZET10TA57 PO; -VARIBAR NECTAR 40% w/v 240ML SUSP BTL As Ordered ONE; -VARIBAR PUDDING 40% w/v 230ML TUBE As Ordered ONE
[2025-05-29 19:15] VITALS: BP 160/84; TEMP 97.4; O2SAT 94
== END 2025-05-29 19:29 | disposition home or self-care (01) ==
LOC: M ED 17:19
DX: S00.83XA Contusion of other part of head, initial encounter (principal); W00.0XXA Fall on same level due to ice and snow, initial encounter; K57.30 Diverticulosis of large intestine without perforation or abscess without bleeding; I10 Essential (primary) hypertension; M43.12 Spondylolisthesis, cervical region; M50.31 Other cervical disc degeneration, high cervical region; M50.322 Other cervical disc degeneration at C5-C6 level; M50.323 Other cervical disc degeneration at C6-C7 level; E11.9 Type 2 diabetes mellitus without complications; Y92.008 Other place in unspecified non-institutional (private) residence as the place of occurrence of the external cause; Y93.89 Activity, other specified; Y99.9 Unspecified external cause status; Z79.82 Long term (current) use of aspirin; Z79.899 Other long term (current) drug therapy; Z79.2 Long term (current) use of antibiotics; Z79.4 Long term (current) use of insulin